=== PATIENT | female | born 1960 | race Caucasian/White ===

== ENCOUNTER 2019-05-01 07:05 | Emergency (ER) | payer MEDICARE, MEDICAID ==
[~2019-05-01] VITALS: Ht 172.7 cm; Wt 74.0 kg
[~2019-05-01 07:05] MED LIST: INSU100I31 SQ; INSU100V11 SQ; LISI-600 PO; METF-438 PO; SIMV20TA5 PO
[2019-05-01] MEDS ORDERED: ondansetron/PF 4mg/2ml inj IV ONE (07:20)
[2019-05-01] MEDS ORDERED: normal saline 1000ML IV soln IVB ONE (07:20)
[2019-05-01 07:40] LABS: BASOPHILS % (AUTO) 0.1 % (0-1); EOSINOPHILS % (AUTO) 0 % (0-6); HEMATOCRIT 44.9 % (35.0-45.0); HEMOGLOBIN 14.7 g/dl (12.0-16.0); LYMPHOCYTES # (AUTO) 2.5 X10'3 (1.1-4.8); LYMPHOCYTES % (AUTO) 16.7 % (21-51); MEAN CORPUSCULAR HEMOGLOBIN 32.5 PG (27.0-31.0); MEAN CORPUSCULAR HGB CONC 32.6 g/dL (33.0-36.5); MEAN CORPUSCULAR VOLUME 99.6 FL (78-98); MEAN PLATELET VOLUME 8.1 FL (7.4-10.4); MONOCYTES # (AUTO) 0.2 X10'3 (0-0.9); MONOCYTES % (AUTO) 1.3 % (2-12); NEUTROPHILS # (AUTO) 12.5 X10'3 (1.8-7.7); NEUTROPHILS % (AUTO) 81.9 % (42-75); PLATELET COUNT 391 X10'3 (140-440); RED BLOOD COUNT 4.51 X10'6 (4.20-5.60); RED CELL DISTRIBUTION WIDTH 13.5 % (11.5-14.5); WHITE BLOOD COUNT 15.3 X10'3 (4.5-11.0)
[2019-05-01 07:51] LABS: ALANINE AMINOTRANSFERASE 26 U/L (12-78); ALBUMIN 3.9 G/DL (3.4-5.0); ALKALINE PHOSPHATASE 180 IU/L (46-116); ANION GAP 20 (8-16); ASPARTATE AMINO TRANSFERASE 16 U/L (10-37); BILIRUBIN,TOTAL 0.4 MG/DL (0.1-1.0); BLOOD UREA NITROGEN 39 MG/DL (7-18); BUN/CREATININE RATIO 27.1 (6.6-38.0); CALCIUM 10.6 MG/DL (8.5-10.1); CHLORIDE 97 MMOL/L (99-107); CREATININE 1.44 MG/DL (0.40-0.90); POTASSIUM 4.7 MMOL/L (3.5-5.1); SODIUM 136 MMOL/L (135-145); TOTAL CARBON DIOXIDE 19.5 MMOL/L (24-32); eGFR 37 ML/MIN
[2019-05-01 07:56] LABS: CLARITY,URINE CLEAR (Clear); COLOR,URINE STRAW (Yellow); GLUCOSE, URINE >=1000 mg/dl (Neg); KETONES,URINE >=80 mg/dl (Neg); LEUKOCYTE ESTERASE ,URINE NEGATIVE (Neg); NITRITES, URINE NEGATIVE (Neg); OCCULT BLOOD,URINE NEGATIVE (Neg); PH,URINE 5.5 (4.8-8.0); PROTEIN,URINE NEGATIVE (Neg); UROBILINOGEN,URINE 0.2 E.U/dL (0.2-1.0)
[2019-05-01 08:05] LABS: UA COLLECTION TYPE CLN CATCH MIDSTREAM
[2019-05-01 08:07] LABS: BACTERIA,URINE 3+ /HPF (Neg); MUCUS STRANDS NONE SEEN /LPF (Neg); RBC,URINE NONE SEEN /HPF (0-2); SQUAMOUS EPITHELIAL CELL,UR FEW /LPF (FEW); WBC CLUMPS,URINE FEW /HPF (NEGATIVE)
[2019-05-01] MEDS ORDERED: CefTRIAXone/D5W-Rocephin 1gm 50 ML IV ONE (08:10)
[2019-05-01 08:12] LABS: GLUCOSE 756 MG/DL (70-104)
[2019-05-01] MEDS ORDERED: potassium Cl 20 mEq SR tablet PO STA ×2 (08:13→10:01)
[2019-05-01] MEDS ORDERED: normal saline 1000ml 1,000 ML IV ONE ×2 (08:15→10:05)
[2019-05-01] MEDS ORDERED: insulin regular, human 10 units/0.1 ml syringe IV ONE ×5 (08:15→11:15)
--- NOTE | 2019-05-01 09:39 | NUR ---
Blood glucose test done using glucometer. MD made aware of results at this time. MD to make orders.
[2019-05-01 11:07] VITALS: BP 147/100
--- NOTE | 2019-05-06 20:09 | NUR ---
ATTEMPTED TO CALL PATIENT WITH RX FOR BACTRIM DS 160 MG TMP PO Q12 HOURS X7 DAYS WRITTEN BY DR OGLESBY FOR POSITIVE URINE CULTURE UNABLE TO LEAVE MESSAGE.
--- NOTE | 2019-05-07 19:56 | NUR ---
ATTEMPTED TO CALL PATIENT WITH RX UNABLE TO LEAVE MESSAGE. LETTER SENT
== END 2019-05-01 12:47 | disposition home or self-care (01) ==
LOC: ER 07:06
DX: E11.65 Type 2 diabetes mellitus with hyperglycemia (principal); N39.0 Urinary tract infection, site not specified; E78.00 Pure hypercholesterolemia, unspecified; I10 Essential (primary) hypertension; F12.90 Cannabis use, unspecified, uncomplicated; Z98.890 Other specified postprocedural states; Z90.49 Acquired absence of other specified parts of digestive tract; Z79.4 Long term (current) use of insulin
CPT/HCPCS: 36415; 80053; 81001; 82948; 85025; 87077; 87088; 87186; 96374; 96375; 96376; 99284; J0696; J1815; J2405; J7030

== ENCOUNTER 2019-05-01 17:36 | Inpatient (IN) | payer MEDICARE, MEDICAID ==
[~2019-05-01] VITALS: Ht 172.7 cm; Wt 76.8 kg
--- NOTE | 2019-05-01 18:23 | NUR ---
PT STARTED VOMITING. ACCU CHECK 443. KIMBERLEY AND OLAF DACOSTA NOTIFIED WILL ATTEMPT TO MOVE PT TO MAIN ER.
--- NOTE | 2019-05-01 18:30 | NUR ---
SPOKE TO CAMRYN GIORDANO REGARDING PATIENT: PT VOMITED 300 ML OF CLEARISH BROWN EMESIS PATIENT RECEIVED 40 UNITS OF INSULIN TODAY AND 4 LITERES OF NS EARLIER TODAY IN THE ER
--- NOTE | 2019-05-01 18:50 | NUR ---
KENNETH VOMITED AGAIN 200 ML BROWN CLEARISH VOMIT: CAMRYN GIORDANO INFORMED ORDERS RECIEVED
[2019-05-01] MEDS ORDERED: metoclopramide 5 mg/ml inj IV ONE (18:55)
[2019-05-01] MEDS ORDERED: normal saline 1000ML IV soln IVB ONE ×2 (18:55→20:10)
--- NOTE | 2019-05-01 19:00 | NUR ---
PATIENT MOVED TO MAIN ER TO ROOM ONE FOR FURTHER TREATMENT: MEDICATIONS AND IV SUPPLIES GIVEN TO JANICE MARTINEZ
[2019-05-01 19:22] LABS: BASOPHILS % (AUTO) 0.2 % (0-1); EOSINOPHILS % (AUTO) 0 % (0-6); HEMATOCRIT 41.6 % (35.0-45.0); HEMOGLOBIN 13.6 g/dl (12.0-16.0); LYMPHOCYTES # (AUTO) 1.4 X10'3 (1.1-4.8); MEAN CORPUSCULAR HGB CONC 32.8 g/dL (33.0-36.5); MEAN CORPUSCULAR VOLUME 97.8 FL (78-98); MONOCYTES # (AUTO) 0.3 X10'3 (0-0.9); MONOCYTES % (AUTO) 2.5 % (2-12); NEUTROPHILS # (AUTO) 11.9 X10'3 (1.8-7.7); NEUTROPHILS % (AUTO) 87.3 % (42-75); PLATELET COUNT 360 X10'3 (140-440); RED BLOOD COUNT 4.25 X10'6 (4.20-5.60); RED CELL DISTRIBUTION WIDTH 13.5 % (11.5-14.5); WHITE BLOOD COUNT 13.6 X10'3 (4.5-11.0)
[2019-05-01 19:47] LABS: ALANINE AMINOTRANSFERASE 28 U/L (12-78); ALKALINE PHOSPHATASE 130 IU/L (46-116); ANION GAP 24 (8-16); ASPARTATE AMINO TRANSFERASE 18 U/L (10-37); BILIRUBIN,TOTAL 0.4 MG/DL (0.1-1.0); BLOOD UREA NITROGEN 31 MG/DL (7-18); BUN/CREATININE RATIO 22.8 (6.6-38.0); CALCIUM 10.1 MG/DL (8.5-10.1); CHLORIDE 100 MMOL/L (99-107); CREATININE 1.36 MG/DL (0.40-0.90); LIPASE 108 U/L (73-393); POTASSIUM 4.9 MMOL/L (3.5-5.1); SODIUM 139 MMOL/L (135-145); TOTAL CARBON DIOXIDE 15.2 MMOL/L (24-32); TOTAL PROTEIN 7.9 G/DL (6.4-8.2); eGFR 40 ML/MIN
--- NOTE | 2019-05-01 19:51 | NUR ---
ESCORTED PT TO BATHROOM. MILDLY UNSTEADY GAIT NOTED. PRIMARY RN NOTIFIED. BLANKET PROVIDED WHEN RETURNED TO [facility].
[2019-05-01 20:07] LABS: GLUCOSE 504 MG/DL (70-104)
[2019-05-01] MEDS ORDERED: insulin regular, human 10 units/0.1 ml syringe SQ ONE (20:10)
[2019-05-01] MEDS ORDERED: haloperidol lactate 5mg/ml inj IM ONE (21:15)
[2019-05-01] MEDS ORDERED: insulin regular, human 100 UNIT in normal saline 100ml IV soln 100 ML IV PRN ×2 (23:00)
[2019-05-01] MEDS ORDERED: insulin regular, human vial - multi-dose IV PRN (23:50)
[2019-05-01] MEDS ORDERED: insulin regular, DKA only 100 UNIT in normal saline 100ml IV soln 99 ML IV SCH ×2 (23:50)
[2019-05-01] MEDS ORDERED: HYDROcodone/acetaminophen 5mg/325mg tablet PO PRN (23:50)
[2019-05-01] MEDS ORDERED: magnesium hydroxide 30ml (MOM) UD suspension PO PRN (23:50)
[2019-05-01] MEDS ORDERED: acetaminophen 325mg tablet PO PRN (23:50)
[2019-05-02] VITALS (12 sets, daily range): BP systolic 95–210; BP diastolic 48–108
[2019-05-02] MEDS: normal saline 1000ml 1,000 ML IV SCH ×11 (00:12→22:27)
[2019-05-02] MEDS: potassium CL 20mEq in D5-1/2NS 1,000 ML IV PRN ×2 (02:24→09:08)
[2019-05-02 02:36] LABS: ALANINE AMINOTRANSFERASE 28 U/L (12-78); ALBUMIN 3.2 G/DL (3.4-5.0); ALBUMIN/GLOBULIN RATIO 0.9 (1.1-1.5); ALKALINE PHOSPHATASE 102 IU/L (46-116); ANION GAP 17 (8-16); ASPARTATE AMINO TRANSFERASE 17 U/L (10-37); BILIRUBIN,TOTAL 0.3 MG/DL (0.1-1.0); BLOOD UREA NITROGEN 26 MG/DL (7-18); BUN/CREATININE RATIO 20.8 (6.6-38.0); CALCIUM 9.1 MG/DL (8.5-10.1); CHLORIDE 110 MMOL/L (99-107); CREATININE 1.25 MG/DL (0.40-0.90); GLUCOSE 249 MG/DL (70-104); POTASSIUM 4.2 MMOL/L (3.5-5.1); SODIUM 145 MMOL/L (135-145); TOTAL CARBON DIOXIDE 17.8 MMOL/L (24-32); TOTAL PROTEIN 6.7 G/DL (6.4-8.2); eGFR 44 ML/MIN
[2019-05-02 02:46] LABS: URINE AMPHETAMINE SCREEN NEGATIVE (Neg); URINE BARBITUATE SCREEN NEGATIVE (Neg); URINE BENZODIAZEPINES SCREEN NEGATIVE (Neg); URINE CANNABINOID SCREEN POSITIVE (Neg); URINE COCAINE SCREEN NEGATIVE (Neg); URINE METHADONE SCREEN NEGATIVE (Neg); URINE OPIATE SCREEN NEGATIVE (Neg); URINE PHENCYCLIDINE SCREEN NEGATIVE (Neg)
--- NOTE | 2019-05-02 08:00 | NUR ---
received report from ED nurse, patient arrived on unit, telemetry applied, insulin running at 5ml/hr, D5/1/2NS+20K @150ml/hr in RAC, Blood glucose assessed, VSS, patient able to transfer self to bed, no acute distress, will continue to monitor.
[2019-05-02] MEDS: heparin, porcine 5000 units/ml vial SQ SCH ×3 (08:52→20:00)
[2019-05-02] MEDS: lisinopril 20mg tablet PO SCH ×2 (08:58→19:22)
[2019-05-02] MEDS ORDERED: glucagon, human recombinant 1mg kit SUBCUT PRN (09:40)
[2019-05-02] MEDS ORDERED: dextrose 50%-water 50ml dispensing syringe IV PRN ×2 (09:40)
[2019-05-02] MEDS ORDERED: dextrose ORAL solution 15 GM/59 ML bottle PO PRN ×2 (09:40)
[2019-05-02] MEDS ORDERED: MESSAGE TO PHARMACY PO ONE (09:40)
--- NOTE | 2019-05-02 10:46 | NUR ---
DM consult: Pt admit with hyperglycemia with BG 504, N/V, dehydration, and metabolic acidosis. Patient's last A1c was >14.0 01/30/18, pending new A1c this visit. Both T1DM and T2DM listed in PMH, pt reports T1DM per H&P. BG levels now down to 249. Pending physical assessment. Per RN notes pt with N/V. Pt will need DM education prior to discharge once stable pending new A1c. Pt currently with active CHO controlled diet order however being documented as NPO in care trends. No documented LBM. Will continue to follow. Recommendations: 1) Continue CHO controlled diet 2) DM education prior to discharge once stable pending A1c 3) Routine bowel care 4) Wt per rx Addendum: 05/02/19 at [address] Amended: Links added.
[2019-05-02 11:17] LABS: ALBUMIN 3.1 G/DL (3.4-5.0); ANION GAP 8 (8-16); BLOOD UREA NITROGEN 21 MG/DL (7-18); BUN/CREATININE RATIO 18.4 (6.6-38.0); CALCIUM 8.5 MG/DL (8.5-10.1); CHLORIDE 110 MMOL/L (99-107); CREATININE 1.14 MG/DL (0.40-0.90); GLUCOSE 160 MG/DL (70-104); POTASSIUM 4.3 MMOL/L (3.5-5.1); SODIUM 144 MMOL/L (135-145); TOTAL CARBON DIOXIDE 26.4 MMOL/L (24-32); eGFR 49 ML/MIN
--- NOTE | 2019-05-02 11:46 | NUR ---
promotional table spacer PAGER ID: [phone] MESSAGE: MICHELLE Richard, ext [phone], [id number], Ema, nelsy Gap is closed and CO2 is normal, will give lunch and treat with subq insulin per protocol and DC insulin drip in a few hours per protocol.
[2019-05-02] MEDS: insulin Lispro (HumaLOG) vial - multi-dose SQ SCH ×2 (12:54→19:35)
--- NOTE | 2019-05-02 18:17 | NUR ---
Problems reprioritized. Patient report given, questions answered & plan of care reviewed with Whit. Patient currently resting in bed, bed locked and low, call light in reach, stable at shift change
--- NOTE | 2019-05-02 18:20 | NUR ---
Patient in room PCU 3009. I have received report from AM RN and had the opportunity to ask questions and assume patient care. assumed care. pt BP elevated. will continue to monitor/ units protocol.
--- NOTE | 2019-05-02 18:36 | NUR ---
notified, pt complaints of dizziness. 05/07 epigastric pain, BP 210-195/96. EKG completed, new lab and medication orders.2L/nc patient laying bed, will continue to monitor
[2019-05-02] MEDS ORDERED: nitroGLYCERIN 0.4mg SUBLingual tab SL ONE (18:50)
[2019-05-02] MEDS: nitroGLYCERIN 0.4mg SUBLingual tab SL PRN ×2 (18:53→19:04)
[2019-05-02] MEDS ORDERED: aspirin 81mg tab.chew PO ONE (19:00)
[2019-05-02] MEDS: labetalol 20mg/4ml (5mg/ml) syringe IV PRN ×2 (19:23→19:42)
[2019-05-02] MEDS: metoprolol tartrate 25mg tablet PO SCH (19:23)
[2019-05-02] MEDS: ondansetron/PF 4mg/2ml inj IV PRN (19:23)
[2019-05-02 19:33] LABS: TROPONIN I 0.42 NG/ML (0.0-0.05)
[2019-05-02] MEDS ORDERED: morphine 4 MG/ML inj SYRINge ONE (19:46)
[2019-05-02] MEDS ORDERED: morphine 4 MG/ML inj SYRINge IV PRN (19:50)
[2019-05-02] MEDS ORDERED: morphine 2 MG/ML inj. syringe IV PRN (19:50)
[2019-05-02] MEDS ORDERED: nitroGLYCERIN 0.4mg/hour patch TD PRN (19:55)
[2019-05-02] MEDS ORDERED: pantoprazole 40 MG vial IV ONE (19:55)
[2019-05-02] MEDS: atorvastatin 10mg tablet PO SCH (20:04)
[2019-05-02] MEDS: mag hydrox/Alum hydrox/simeth 30ml oral suspension PO PRN (20:04)
[2019-05-02] MEDS: enoxaparin 80mg/0.8ml syringe SUBCUT SCH (20:11)
[2019-05-02 20:34] LABS: D-DIMER 1.95 MG/L FEU (0-0.50)
[2019-05-02 20:41] LABS: ALBUMIN 3.4 G/DL (3.4-5.0); ANION GAP 22 (8-16); BLOOD UREA NITROGEN 21 MG/DL (7-18); BUN/CREATININE RATIO 17.4 (6.6-38.0); CALCIUM 8.9 MG/DL (8.5-10.1); CHLORIDE 99 MMOL/L (99-107); CREATININE 1.21 MG/DL (0.40-0.90); SODIUM 137 MMOL/L (135-145); TROPONIN I 0.36 NG/ML (0.0-0.05); eGFR 46 ML/MIN
[2019-05-02 20:43] LABS: GLUCOSE 482 MG/DL (70-104)
[2019-05-02] MEDS: insulin glargine (Lantus) pen - multi-dose SQ SCH (21:00)
--- NOTE | 2019-05-02 21:30 | NUR ---
Dr. Cruz notified. critical glucose from lab at 1999 was 482. current finger stick 384, co2 16, anio gap 22 trops 0.32 pt SBP continue to trend 180-190. denies chest pain, resting quietly new orders pt placed on DKA protocol. record press tender aware. patient assignment changed from 4 to 3 patients.
[2019-05-02] MEDS ORDERED: normal saline 1000ml 1,000 ML IV SCH (21:43)
[2019-05-02] MEDS ORDERED: insulin regular, DKA only 100 UNIT in normal saline 100ml IV soln 99 ML IV SCH ×2 (21:43)
[2019-05-02] MEDS ORDERED: potassium CL 20mEq in D5-1/2NS 1,000 ML IV PRN (21:43)
[2019-05-03] VITALS (8 sets, daily range): BP systolic 133–189; BP diastolic 65–94
[2019-05-03 01:58] LABS: ALBUMIN 2.7 G/DL (3.4-5.0); ANION GAP 14 (8-16); BLOOD UREA NITROGEN 20 MG/DL (7-18); BUN/CREATININE RATIO 19.6 (6.6-38.0); CHLORIDE 109 MMOL/L (99-107); CREATININE 1.02 MG/DL (0.40-0.90); GLUCOSE 214 MG/DL (70-104); POTASSIUM 3.9 MMOL/L (3.5-5.1); SODIUM 142 MMOL/L (135-145); TOTAL CARBON DIOXIDE 18.9 MMOL/L (24-32); eGFR 56 ML/MIN
[2019-05-03] MEDS ORDERED: Potassium Cl inj 20 MEQ in normal saline 1000ml 990 ML IV SCH (02:45)
[2019-05-03] MEDS: potassium Cl 20mEq in NS 1,000 ML IV SCH ×2 (03:00→13:25)
--- NOTE | 2019-05-03 06:30 | NUR ---
Patient in room PCU 3009. I have received report from pge vidal and had the opportunity to ask questions and assume patient care.
--- NOTE | 2019-05-03 06:35 | NUR ---
Problems reprioritized. Patient report given Andreas RN and endoresed care to Andreas RN, questions answered & plan of care reviewed with .
[2019-05-03] MEDS: insulin Lispro (HumaLOG) vial - multi-dose SQ SCH ×3 (07:55→21:35)
[2019-05-03] MEDS: ondansetron/PF 4mg/2ml inj IV PRN (07:58)
[2019-05-03] MEDS: enoxaparin 80mg/0.8ml syringe SUBCUT SCH ×2 (08:07→20:30)
[2019-05-03] MEDS: lisinopril 20mg tablet PO SCH ×2 (08:12→20:28)
[2019-05-03] MEDS: mag hydrox/Alum hydrox/simeth 30ml oral suspension PO PRN ×3 (08:13→19:48)
[2019-05-03] MEDS: metoprolol tartrate 25mg tablet PO SCH ×2 (08:13→20:29)
[2019-05-03 08:17] LABS: BASOPHILS # (AUTO) 0.1 X10'3 (0-0.2); BASOPHILS % (AUTO) 0.4 % (0-1); EOSINOPHILS % (AUTO) 0 % (0-6); HEMATOCRIT 36.8 % (35.0-45.0); HEMOGLOBIN 12.3 g/dl (12.0-16.0); LYMPHOCYTES # (AUTO) 2.7 X10'3 (1.1-4.8); LYMPHOCYTES % (AUTO) 18.7 % (21-51); MEAN CORPUSCULAR HEMOGLOBIN 32.3 PG (27.0-31.0); MEAN CORPUSCULAR HGB CONC 33.3 g/dL (33.0-36.5); MEAN PLATELET VOLUME 8.1 FL (7.4-10.4); MONOCYTES # (AUTO) 0.9 X10'3 (0-0.9); MONOCYTES % (AUTO) 6.3 % (2-12); NEUTROPHILS % (AUTO) 74.6 % (42-75); PLATELET COUNT 279 X10'3 (140-440); RED CELL DISTRIBUTION WIDTH 13.5 % (11.5-14.5); WHITE BLOOD COUNT 14.7 X10'3 (4.5-11.0)
[2019-05-03 08:31] LABS: ALKALINE PHOSPHATASE 96 IU/L (46-116); BILIRUBIN,TOTAL 0.6 MG/DL (0.1-1.0); TOTAL PROTEIN 6.6 G/DL (6.4-8.2)
[2019-05-03 08:45] LABS: ALANINE AMINOTRANSFERASE 47 U/L (12-78); ALBUMIN/GLOBULIN RATIO 0.8 (1.1-1.5); ANION GAP 16 (8-16); ASPARTATE AMINO TRANSFERASE 57 U/L (10-37); BLOOD UREA NITROGEN 17 MG/DL (7-18); BUN/CREATININE RATIO 13.9 (6.6-38.0); CALCIUM 8.4 MG/DL (8.5-10.1); CHLORIDE 102 MMOL/L (99-107); CREATININE 1.22 MG/DL (0.40-0.90); GLUCOSE 434 MG/DL (70-104); POTASSIUM 4.7 MMOL/L (3.5-5.1); SODIUM 136 MMOL/L (135-145); TOTAL CARBON DIOXIDE 18.1 MMOL/L (24-32); eGFR 45 ML/MIN
[2019-05-03] MEDS ORDERED: iohexol 350MG/ML 100ml bottle IV ONE (11:46)
[2019-05-03] MEDS: MESSAGE TO NURSING PO NR (13:25)
[2019-05-03] MEDS ORDERED: normal saline 1000ml 1,000 ML IV ONE (14:55)
[2019-05-03] MEDS ORDERED: regadenoson 0.4mg/5ml syringe IV ONE (14:55)
[2019-05-03] MEDS ORDERED: nitroGLYCERIN 0.4mg SUBLingual tab SL PRN (14:55)
[2019-05-03] MEDS ORDERED: metoprolol tartrate 1mg/ml inj IV PRN (14:55)
[2019-05-03] MEDS ORDERED: aminophylline 250mg/10ml inj. IV PRN (14:55)
--- NOTE | 2019-05-03 15:07 | NUR ---
PAGER ID: [phone] MESSAGE: DR. PINZON, 3009/RAUL, CURRENT ORDER NS 20 MEQ KCL AT 100CC/HR. NEW ORDER FOR 1LITER NS AT 100CC/HOUR X1. PLEASE CLARIFY IV ORDERS. HU [id number], TY
[2019-05-03] MEDS: labetalol 20mg/4ml (5mg/ml) syringe IV PRN (15:26)
--- NOTE | 2019-05-03 17:06 | NUR ---
PAGER ID: [phone] MESSAGE: DR. PINZON, 3009A/RAUL, JUST HAD 7 BEAT RUN VT/OR A BBB/ OR BURST SVT? WIDE COMPLEX. ASX. HU [id number]/[id number]. TY
--- NOTE | 2019-05-03 18:45 | NUR ---
Problems reprioritized. Patient report given, questions answered & plan of care reviewed with MICHELLE NAVARRO.
--- NOTE | 2019-05-03 18:58 | NUR ---
Patient in room PCU 3009. I have received report from MICHELLE Morejon and had the opportunity to ask questions and assume patient care.
[2019-05-03] MEDS: atorvastatin 10mg tablet PO SCH (20:29)
[2019-05-03] MEDS: insulin glargine (Lantus) pen - multi-dose SQ SCH (21:36)
[2019-05-03] MEDS ORDERED: potassium Cl 20mEq in NS 1,000 ML IV SCH (21:43)
[2019-05-04] VITALS (17 sets, daily range): BP systolic 111–199; BP diastolic 68–100
[2019-05-04] MEDS: mag hydrox/Alum hydrox/simeth 30ml oral suspension PO PRN ×2 (00:46→18:36)
[2019-05-04 05:41] LABS: ABG BASE EXCESS -12.8 mmol/L (-2.0-3.0); ABG HCO3 12.1 mmol/L (22.0-26.0); ABG OXYGEN SATURATION 94.4 % (95-98); ABG PH (T) 7.286 (7.350-7.450); ABG PO2 (T) 76.6 mmHg (83-108); ALLEN'S TEST Positive; FMetHb 0.2 % (0.3-1.12); FO2Hb 94.2 % (94-100); PATIENT TEMPERATURE 36.8; RESPIRATORY RATE (OBSERVED) 16 b/min; TOTAL HEMOGLOBIN 14.1 G/dl (12.0-16.0)
[2019-05-04 06:28] LABS: BASOPHILS % (AUTO) 0.3 % (0-1); EOSINOPHILS % (AUTO) 0 % (0-6); HEMATOCRIT 36.7 % (35.0-45.0); HEMOGLOBIN 12.5 g/dl (12.0-16.0); LYMPHOCYTES # (AUTO) 2.9 X10'3 (1.1-4.8); LYMPHOCYTES % (AUTO) 35.3 % (21-51); MEAN CORPUSCULAR HEMOGLOBIN 32.3 PG (27.0-31.0); MEAN CORPUSCULAR VOLUME 95.2 FL (78-98); MEAN PLATELET VOLUME 8.2 FL (7.4-10.4); MONOCYTES # (AUTO) 0.7 X10'3 (0-0.9); MONOCYTES % (AUTO) 8.6 % (2-12); NEUTROPHILS # (AUTO) 4.6 X10'3 (1.8-7.7); NEUTROPHILS % (AUTO) 55.8 % (42-75); PLATELET COUNT 274 X10'3 (140-440); RED BLOOD COUNT 3.86 X10'6 (4.20-5.60); RED CELL DISTRIBUTION WIDTH 13.3 % (11.5-14.5); WHITE BLOOD COUNT 8.3 X10'3 (4.5-11.0)
--- NOTE | 2019-05-04 06:35 | NUR ---
Problems reprioritized. Patient report given, questions answered & plan of care reviewed with MICHELLE Morejon.
--- NOTE | 2019-05-04 06:40 | NUR ---
Patient in room PCU 3009. I have received report from MICHELLE Hernandez and had the opportunity to ask questions and assume patient care.
[2019-05-04 06:54] LABS: ALANINE AMINOTRANSFERASE 53 U/L (12-78); ALBUMIN 3.1 G/DL (3.4-5.0); ALBUMIN/GLOBULIN RATIO 0.9 (1.1-1.5); ALKALINE PHOSPHATASE 98 IU/L (46-116); ANION GAP 11 (8-16); ASPARTATE AMINO TRANSFERASE 37 U/L (10-37); BILIRUBIN,TOTAL 0.7 MG/DL (0.1-1.0); BLOOD UREA NITROGEN 9 MG/DL (7-18); BUN/CREATININE RATIO 10.6 (6.6-38.0); CALCIUM 8.4 MG/DL (8.5-10.1); CHLORIDE 104 MMOL/L (99-107); CHOL/HDL RATIO 2.6 (0.00-4.99); CHOLESTEROL 143 MG/DL (0-200); CREATININE 0.85 MG/DL (0.40-0.90); GLUCOSE 160 MG/DL (70-104); HDL CHOLESTEROL 56 MG/DL (35-60); LDL CHOLESTEROL 70 MG/DL (50-100); POTASSIUM 3.5 MMOL/L (3.5-5.1); SODIUM 142 MMOL/L (135-145); TOTAL CARBON DIOXIDE 26.6 MMOL/L (24-32); TOTAL PROTEIN 6.7 G/DL (6.4-8.2); TRIGLYCERIDES 140 MG/DL (20-135); eGFR 69 ML/MIN
[2019-05-04] MEDS: metoprolol tartrate 25mg tablet PO SCH ×2 (08:03→20:58)
[2019-05-04] MEDS: lisinopril 20mg tablet PO SCH ×2 (08:03→20:58)
[2019-05-04] MEDS: enoxaparin 80mg/0.8ml syringe SUBCUT SCH ×2 (08:04→20:59)
[2019-05-04] MEDS: insulin Lispro (HumaLOG) vial - multi-dose SQ SCH ×2 (08:13→18:45)
[2019-05-04] MEDS: MESSAGE TO NURSING PO NR (10:00)
--- NOTE | 2019-05-04 11:33 | NUR ---
PAGER ID: [phone] MESSAGE: DR. JONES, 0972S/RAUL, STATES EVERY TIME SHE EATS IT HURTS. SWALLOWING FOOD CAUSES PAIN. MAALOX HAS RELEIVED THE PAIN. CLAIMS TO TAKE MANY ANTACIDS AT HOME. CANNOT EAT MUCH NOW R/T PAIN OF EATING. HU [id number].
[2019-05-04] MEDS: labetalol 20mg/4ml (5mg/ml) syringe IV PRN (11:36)
--- NOTE | 2019-05-04 13:37 | NUR ---
PAGER ID: [phone] MESSAGE: DR. 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 CAN SHE TRY TO EAT NOW? ALSO, PT IS VERY FORGETFUL, CAN'T REMEMBER WHAT YOU TOLD HER. HER MOTHER IS ASKING IF YOU COULD REPEAT WHAT YOU TOLD HER DAUGHTER. HU [id number]. TY
[2019-05-04] MEDS ORDERED: AMLO5TAB4 PO (15:30)
[2019-05-04] MEDS ORDERED: PANT40TA4 PO (15:31)
--- NOTE | 2019-05-04 15:34 | NUR ---
F/u: Pt/family seen by WHITNEY for written/verbal DM ed w/ RD contact information provided. Pt A1C down from >14 last year; pt reports would like to go to CDE Course which WHITNEY encouraged. Addendum: 05/04/19 at [address] Amended: Links added.
--- NOTE | 2019-05-04 15:35 | NUR ---
Paged Dr. Quintero regarding pts elevated SBP PAGER ID: [phone] MESSAGE: [phone] - Ema - SBP has remained over 150 throughout day. Do we want to give another dose of labetalol before discharge? Kindly advise, thank you! - MICHELLE Hill [phone]
[2019-05-04] MEDS ORDERED: cloNIDine 0.1 mg tablet PO ONE (15:40)
--- NOTE | 2019-05-04 15:49 | NUR ---
ORDER FROM DR. JONES FOR CLONIDINE 0.2 MG PO X1. STATES"DON'T GIVE TO IV TRANDATE".
--- NOTE | 2019-05-04 18:30 | NUR ---
Patient in room PCU 3009. I have received report from Jalil MARTINEZ and had the opportunity to ask questions and assume patient care.
--- NOTE | 2019-05-04 18:30 | NUR ---
Problems reprioritized. Patient report given, questions answered & plan of care reviewed with MICHELLE CHAUDHARY.
--- NOTE | 2019-05-04 18:44 | NUR ---
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
--- NOTE | 2019-05-04 19:54 | NUR ---
rec'd a call from Dr. Galeana who stated to cancel discharge and ordered kiesha scan and other tests for tomorrow.
[2019-05-04] MEDS ORDERED: metoprolol tartrate 1mg/ml inj IV PRN (19:55)
[2019-05-04] MEDS ORDERED: nitroGLYCERIN 0.4mg SUBLingual tab SL PRN (19:55)
[2019-05-04] MEDS ORDERED: aminophylline 250mg/10ml inj. IV PRN (19:55)
[2019-05-04] MEDS ORDERED: regadenoson 0.4mg/5ml syringe IV ONE (19:55)
[2019-05-04] MEDS ORDERED: regadenoson 0.4mg/5ml syringe IV PRN (20:05)
[2019-05-04] MEDS: atorvastatin 10mg tablet PO SCH (20:58)
[2019-05-04] MEDS: insulin glargine (Lantus) pen - multi-dose SQ SCH (22:27)
[2019-05-04] MEDS ORDERED: amLODIPine 5mg tablet PO ONE (22:55)
[2019-05-04] MEDS ORDERED: pantoprazole 40 MG vial IV ONE (22:55)
--- NOTE | 2019-05-04 23:02 | NUR ---
called Dr. Galeana to let him know that lexiscan was done already today. he would still like abdominal ultrasound done, but he stated that he has now signed off on this patient and that he was unable to see lexiscan report earlier tonight. read him the results and he said ok to dc from cardiology and turn over fully to hospitalist. Dr. Galeana stated he does not want to be notified about this patient any more.
[2019-05-05 02:00] VITALS: BP 154/92
[2019-05-05 05:47] LABS: BASOPHILS % (AUTO) 0.4 % (0-1); EOSINOPHILS % (AUTO) 0 % (0-6); HEMATOCRIT 42.9 % (35.0-45.0); HEMOGLOBIN 14.4 g/dl (12.0-16.0); LYMPHOCYTES # (AUTO) 2.2 X10'3 (1.1-4.8); LYMPHOCYTES % (AUTO) 42.4 % (21-51); MEAN CORPUSCULAR HEMOGLOBIN 32.1 PG (27.0-31.0); MEAN CORPUSCULAR HGB CONC 33.6 g/dL (33.0-36.5); MEAN CORPUSCULAR VOLUME 95.5 FL (78-98); MEAN PLATELET VOLUME 7.9 FL (7.4-10.4); MONOCYTES # (AUTO) 0.7 X10'3 (0-0.9); MONOCYTES % (AUTO) 13.3 % (2-12); NEUTROPHILS # (AUTO) 2.3 X10'3 (1.8-7.7); NEUTROPHILS % (AUTO) 43.9 % (42-75); PLATELET COUNT 287 X10'3 (140-440); RED BLOOD COUNT 4.49 X10'6 (4.20-5.60); RED CELL DISTRIBUTION WIDTH 13.1 % (11.5-14.5); WHITE BLOOD COUNT 5.1 X10'3 (4.5-11.0)
--- NOTE | 2019-05-05 05:52 | NUR ---
Orientee documentation: I have reviewed and agree with all interventions, meds given, assessments performed and documented by Karen MARTINEZ.
[2019-05-05 06:00] VITALS: BP 119/83
--- NOTE | 2019-05-05 06:23 | NUR ---
Patient in room PCU 3009. I have received report from MICHELLE Martinez and had the opportunity to ask questions and assume patient care.
--- NOTE | 2019-05-05 06:25 | NUR ---
Patient in room PCU 3009. I have received report from MICHELLE CHAUDHARY and had the opportunity to ask questions and assume patient care.
--- NOTE | 2019-05-05 06:28 | NUR ---
Problems reprioritized. Patient report given, questions answered & plan of care reviewed with Jean-Pierre and Claudia RNs.
--- NOTE | 2019-05-05 06:28 | NUR ---
Problems reprioritized. Patient report given, questions answered & plan of care reviewed with Jean-Pierre Rn and Liz RN.
[2019-05-05 06:35] LABS: ALANINE AMINOTRANSFERASE 48 U/L (12-78); ALBUMIN 3.2 G/DL (3.4-5.0); ALBUMIN/GLOBULIN RATIO 0.8 (1.1-1.5); ALKALINE PHOSPHATASE 99 IU/L (46-116); AMYLASE 46 U/L (25-115); ANION GAP 10 (8-16); ASPARTATE AMINO TRANSFERASE 25 U/L (10-37); BILIRUBIN,TOTAL 0.6 MG/DL (0.1-1.0); BLOOD UREA NITROGEN 12 MG/DL (7-18); BUN/CREATININE RATIO 12.8 (6.6-38.0); CALCIUM 9.3 MG/DL (8.5-10.1); CHLORIDE 107 MMOL/L (99-107); CREATININE 0.94 MG/DL (0.40-0.90); POTASSIUM 3.5 MMOL/L (3.5-5.1); SODIUM 149 MMOL/L (135-145); TOTAL CARBON DIOXIDE 32.2 MMOL/L (24-32); TOTAL PROTEIN 7.3 G/DL (6.4-8.2); eGFR 61 ML/MIN
[2019-05-05 06:58] LABS: GLUCOSE 37 MG/DL (70-104)
--- NOTE | 2019-05-05 07:04 | NUR ---
Paged Dr. Quintero about pts BS of 37 at [phone]. Reassessed BS read 153. PAGER ID: [phone] MESSAGE: [id number] - Lefort: FYI pt BS was 37 at 0449. Reassessed at 0700 BS was 153. MICHELLE Hill x [phone]
[2019-05-05] MEDS ORDERED: amLODIPine 5mg tablet PO SCH (08:00)
[2019-05-05] MEDS: metoprolol tartrate 25mg tablet PO SCH (08:00)
[2019-05-05] MEDS ORDERED: pantoprazole 40 MG vial IV SCH (08:00)
[2019-05-05 08:01] VITALS: BP_SYST 147
[2019-05-05] MEDS: lisinopril 20mg tablet PO SCH (08:01)
[2019-05-05] MEDS: insulin Lispro (HumaLOG) vial - multi-dose SQ SCH (08:20)
--- NOTE | 2019-05-05 09:40 | NUR ---
CALLED UNABLE TO LEAVE A MESSAGE.
[2019-05-05] MEDS: MESSAGE TO NURSING PO NR (10:29)
--- NOTE | 2019-05-05 10:46 | NUR ---
Pt discharged [id number]
--- NOTE | 2019-05-05 11:11 | NUR ---
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
== END 2019-05-05 10:47 | disposition home or self-care (01) | DRG 637 ==
LOC: ER 17:37 → ED HOLD 23:48 → PCU 3S 05-02 07:55
PROVIDERS: ADMIT Internal Medicine; ATTEND Family Medicine
PROC: B32T1ZZ Computerized Tomography (CT Scan) of Left Pulmonary Artery using Low Osmolar Contrast (ICD-10-PCS; principal; 2019-05-03)
PROC: B3201ZZ Computerized Tomography (CT Scan) of Thoracic Aorta using Low Osmolar Contrast (ICD-10-PCS; 2019-05-03)
PROC: B32S1ZZ Computerized Tomography (CT Scan) of Right Pulmonary Artery using Low Osmolar Contrast (ICD-10-PCS; 2019-05-03)
PROC: 4A02XM4 Measurement of Cardiac Total Activity, External Approach (ICD-10-PCS; 2019-05-04)
PROC: 3E033HZ Introduction of Radioactive Substance into Peripheral Vein, Percutaneous Approach (ICD-10-PCS; 2019-05-04)
DX: E11.10 Type 2 diabetes mellitus with ketoacidosis without coma (principal); I21.A1 Myocardial infarction type 2; I16.1 Hypertensive emergency; T40.7X1A Poisoning by cannabis (derivatives), accidental (unintentional), initial encounter; E78.00 Pure hypercholesterolemia, unspecified; E86.0 Dehydration; F12.10 Cannabis abuse, uncomplicated; I10 Essential (primary) hypertension; I25.10 Atherosclerotic heart disease of native coronary artery without angina pectoris; K21.9 Gastro-esophageal reflux disease without esophagitis; K29.70 Gastritis, unspecified, without bleeding; Z87.891 Personal history of nicotine dependence; Z91.19 Patient's noncompliance with other medical treatment and regimen; Z90.49 Acquired absence of other specified parts of digestive tract; Z71.51 Drug abuse counseling and surveillance of drug abuser; Y92.89 Other specified places as the place of occurrence of the external cause
CPT/HCPCS: 36415; 36600; 71275; 76700; 78452; 80048; 80053; 80061; 80305; 82009; 82150; 82803; 82948; 83036; 83605; 83690; 84484; 85018; 85025; 85379; 87081; 93005; 93017; 93306; 96361; 96372; 96374; 99285; A9500; C9113; G0378; J0280; J1630; J1644; J1650; J1815; J2270; J2405; J2765; J2785; J3480; J3490; J7030; Q9967

== ENCOUNTER 2021-10-22 09:20 | Emergency (ER) | payer MEDICARE, MEDICAID ==
[~2021-10-22] VITALS: Ht 172.7 cm; Wt 72.7 kg
[~2021-10-22 09:20] MED LIST changes: +AMLO5TAB4 PO; -LISI-600 PO; +LISI20TA28 PO; +PANT40TA54 PO; +SIMV-42 PO; -SIMV20TA5 PO
[2021-10-22 09:33] VITALS: BP 147/90
[2021-10-22] MEDS ORDERED: acetaminophen 325mg tablet PO ONE (09:55)
[2021-10-22 10:41] LABS: BASOPHILS % (AUTO) 0.4 % (0-1); EOSINOPHILS % (AUTO) 0 % (0-6); HEMATOCRIT 37.5 % (35.0-45.0); HEMOGLOBIN 12.8 g/dl (12.0-16.0); LYMPHOCYTES # (AUTO) 2.7 X10'3 (1.1-4.8); LYMPHOCYTES % (AUTO) 30.4 % (21-51); MEAN CORPUSCULAR HEMOGLOBIN 32.6 PG (27.0-31.0); MEAN CORPUSCULAR HGB CONC 34.2 g/dL (33.0-36.5); MEAN CORPUSCULAR VOLUME 95.5 FL (78-98); MEAN PLATELET VOLUME 7.6 FL (7.4-10.4); MONOCYTES # (AUTO) 0.7 X10'3 (0-0.9); MONOCYTES % (AUTO) 7.4 % (2-12); NEUTROPHILS # (AUTO) 5.5 X10'3 (1.8-7.7); NEUTROPHILS % (AUTO) 61.8 % (42-75); PLATELET COUNT 379 X10'3 (140-440); RED BLOOD COUNT 3.93 X10'6 (4.20-5.60); RED CELL DISTRIBUTION WIDTH 13.3 % (11.5-14.5); WHITE BLOOD COUNT 8.9 X10'3 (4.5-11.0)
[2021-10-22 11:08] LABS: ALANINE AMINOTRANSFERASE 26 U/L (12-78); ALBUMIN 3.6 G/DL (3.4-5.0); ALBUMIN/GLOBULIN RATIO 0.8 (1.1-1.5); ALKALINE PHOSPHATASE 90 IU/L (46-116); ASPARTATE AMINO TRANSFERASE 16 U/L (10-37); BILIRUBIN,TOTAL 0.5 MG/DL (0.1-1.0); BLOOD UREA NITROGEN 19 MG/DL (7-18); BUN/CREATININE RATIO 21.6 (6.6-38.0); CALCIUM 9.4 MG/DL (8.5-10.1); CHLORIDE 99 MMOL/L (99-107); CREATININE 0.88 MG/DL (0.40-0.90); GLUCOSE 362 MG/DL (70-104); POTASSIUM 3.9 MMOL/L (3.5-5.1); SODIUM 137 MMOL/L (135-145); TOTAL PROTEIN 7.9 G/DL (6.4-8.2); eGFR 65 ML/MIN
[2021-10-22 11:10] LABS: ANION GAP 9 (8-16); TOTAL CARBON DIOXIDE 28.6 MMOL/L (24-32)
== END 2021-10-22 11:26 | disposition home or self-care (01) ==
LOC: ER 09:21
DX: S70.12XA Contusion of left thigh, initial encounter (principal); M79.661 Pain in right lower leg; E11.9 Type 2 diabetes mellitus without complications; E78.00 Pure hypercholesterolemia, unspecified; I10 Essential (primary) hypertension; F12.90 Cannabis use, unspecified, uncomplicated; Z90.49 Acquired absence of other specified parts of digestive tract; Z72.89 Other problems related to lifestyle; Z79.899 Other long term (current) drug therapy; Z79.4 Long term (current) use of insulin; W54.1XXA Struck by dog, initial encounter; Y93.89 Activity, other specified; Y92.89 Other specified places as the place of occurrence of the external cause; Y99.8 Other external cause status
CPT/HCPCS: 36415; 80053; 85025; 93971; 99284

== ENCOUNTER 2023-12-15 09:35 | Emergency (ER) | payer OTHER, MEDICAID ==
[~2023-12-15] VITALS: Ht 172.7 cm; Wt 73.0 kg
[2023-12-15 09:39] VITALS: TEMP 97.7
[2023-12-15] MEDS ORDERED: CELE-193 PO (12:01)
[2023-12-15 12:15] VITALS: BP 170/99; PULSE 78; RESP 16; O2SAT 98
== END 2023-12-15 12:27 | disposition home or self-care (01) ==
LOC: ER 09:35
DX: M25.561 Pain in right knee (principal); M25.562 Pain in left knee; E78.00 Pure hypercholesterolemia, unspecified; I10 Essential (primary) hypertension; E11.9 Type 2 diabetes mellitus without complications; F12.90 Cannabis use, unspecified, uncomplicated; Z79.899 Other long term (current) drug therapy
CPT/HCPCS: 73560; 99283

== ENCOUNTER 2024-01-08 21:05 | Inpatient (IN) | payer OTHER, MEDICAID ==
[~2024-01-08] VITALS: Ht 172.7 cm; Wt 75.9 kg
[~2024-01-08 21:05] MED LIST changes: +CELE-193 PO
[2024-01-08] MEDS: normal saline 1000ml 1,000 ML IV ONE ×3 (21:26→22:42)
[2024-01-08 21:37] LABS: BASOPHILS # (AUTO) 0.1 X10'3 (0-0.2); BASOPHILS % (AUTO) 0.2 % (0-1); EOSINOPHILS % (AUTO) 0 % (0-6); HEMOGLOBIN 12.7 g/dl (12.0-16.0); LYMPHOCYTES # (AUTO) 2.9 X10'3 (1.1-4.8); LYMPHOCYTES % (AUTO) 10.1 % (21-51); MEAN PLATELET VOLUME 8.1 FL (7.4-10.4); MONOCYTES # (AUTO) 1.8 X10'3 (0-0.9); MONOCYTES % (AUTO) 6.3 % (2-12); NEUTROPHILS # (AUTO) 23.8 X10'3 (1.8-7.7); NEUTROPHILS % (AUTO) 83.4 % (42-75); PLATELET COUNT 430 X10'3 (140-440)
[2024-01-08] MEDS: insulin regular, human 10 units/0.1 ml syringe IV ONE (21:41)
[2024-01-08 21:54] LABS: ALANINE AMINOTRANSFERASE 56 U/L (12-78); ALKALINE PHOSPHATASE 118 IU/L (46-116); ANION GAP 39 (8-16); ASPARTATE AMINO TRANSFERASE 20 U/L (10-37); BILIRUBIN,TOTAL 0.6 MG/DL (0.1-1.0); BLOOD UREA NITROGEN 55 MG/DL (7-18); BUN/CREATININE RATIO 20.1 (10.0-20.0); CALCIUM 9.8 MG/DL (8.5-10.1); CHLORIDE 81 MMOL/L (99-107); CREATININE 2.73 MG/DL (0.40-0.90); POTASSIUM 4.6 MMOL/L (3.5-5.1); SODIUM 128 MMOL/L (135-145); eCRCL 21 ML/MIN; eGFR 18 ML/MIN
[2024-01-08] MEDS: ondansetron/PF 4mg/2ml inj IV ONE (21:58)
[2024-01-08 22:00] LABS: HEMATOCRIT 37.9 % (35.0-45.0); MEAN CORPUSCULAR HEMOGLOBIN 34.3 PG (27.0-31.0); MEAN CORPUSCULAR HGB CONC 33.6 g/dL (33.0-36.5); MEAN CORPUSCULAR VOLUME 102.3 FL (78-98)
[2024-01-08 22:01] LABS: RED CELL DISTRIBUTION WIDTH 13.1 % (11.5-14.5)
[2024-01-08 22:03] LABS: WHITE BLOOD COUNT 28.5 X10'3 (4.5-11.0)
[2024-01-08 22:05] LABS: HEMOGLOBIN A1C > 12.0 % (4.5-6.2)
[2024-01-08] MEDS ORDERED: sodium bicarbonate (8.4%) inj. 50 MEQ in dextrose 5% water 500ml 250 ML IV PRN (22:05)
[2024-01-08] MEDS ORDERED: sodium phosphate inj. 30 MMOL in dextrose 5%-water 250 ML IV PRN (22:05)
[2024-01-08] MEDS ORDERED: sodium bicarbonate (8.4%) inj. 100 MEQ in dextrose 5% water 500ml 500 ML IV PRN (22:05)
[2024-01-08] MEDS ORDERED: potassium Cl 20 mEq SR tablet PO PRN ×2 (22:05)
[2024-01-08] MEDS ORDERED: insulin regular, human U-100 3ml vial - multi-dose IV PRN (22:05)
[2024-01-08] MEDS ORDERED: sodium phosphate inj. 15 MMOL in dextrose 5%-water 250 ML IV PRN (22:05)
[2024-01-08] MEDS ORDERED: potassium Cl 40MEQ/1/2NS 520ml 520 ML IV PRN (22:05)
[2024-01-08] MEDS ORDERED: Neutra Phos packet PO PRN (22:05)
[2024-01-08 22:14] LABS: GLUCOSE 1064 MG/DL (70-104)
[2024-01-08 22:15] LABS: TOTAL CARBON DIOXIDE 8.5 MMOL/L (24-32)
[2024-01-08 22:24] LABS: NUCLEATED RED BLOOD CELLS 1 /100WBC (0-0); TOTAL CELLS COUNTED 100
[2024-01-08 22:25] LABS: PLATELET ESTIMATE NORMAL
[2024-01-08 22:26] LABS: ACANTHOCYTES FEW; BURR CELLS FEW
[2024-01-08] MEDS: Insulin Reg/NS 100units/100mL 100 ML IV SCH (22:41)
[2024-01-08 22:58] LABS: ALBUMIN 3.5 G/DL (3.4-5.0); ANION GAP 36 (8-16); BLOOD UREA NITROGEN 58 MG/DL (7-18); BUN/CREATININE RATIO 22.5 (10.0-20.0); CALCIUM 8.6 MG/DL (8.5-10.1); CHLORIDE 90 MMOL/L (99-107); CREATININE 2.58 MG/DL (0.40-0.90); PHOSPHORUS 8.5 MG/DL (2.3-4.5); SODIUM 133 MMOL/L (135-145); eCRCL 23 ML/MIN; eGFR 19 ML/MIN
[2024-01-08 23:01] LABS: POTASSIUM 4.7 MMOL/L (3.5-5.1)
[2024-01-08 23:05] LABS: TOTAL CARBON DIOXIDE 6.8 MMOL/L (24-32)
[2024-01-08] MEDS: normal saline 1000ml 1,000 ML IV SCH (23:07)
[2024-01-08 23:13] LABS: GLUCOSE 930 MG/DL (70-104)
[2024-01-09] VITALS (24 sets, daily range): BP systolic 80–135; BP diastolic 41–77; PULSE 72–105; RESP 12–22; O2SAT 93–100
[2024-01-09 00:10] LABS: URINE AMPHETAMINE SCREEN NEGATIVE (Neg); URINE BARBITUATE SCREEN NEGATIVE (Neg); URINE BENZODIAZEPINES SCREEN NEGATIVE (Neg); URINE CANNABINOID SCREEN POSITIVE (Neg); URINE COCAINE SCREEN NEGATIVE (Neg); URINE METHADONE SCREEN NEGATIVE (Neg); URINE OPIATE SCREEN NEGATIVE (Neg); URINE PHENCYCLIDINE SCREEN NEGATIVE (Neg)
[2024-01-09 01:17] LABS: BILIRUBIN,URINE NEGATIVE (Neg); CLARITY,URINE CLEAR (Clear); COLOR,URINE YELLOW (Yellow); GLUCOSE, URINE >=1000 mg/dl (Neg); KETONES,URINE >=80 mg/dl (Neg); LEUKOCYTE ESTERASE ,URINE NEGATIVE (Neg); NITRITES, URINE NEGATIVE (Neg); OCCULT BLOOD,URINE SMALL (Neg); PH,URINE 5.5 (4.8-8.0); PROTEIN,URINE TRACE mg/dl (Neg); UROBILINOGEN,URINE 0.2 E.U/dL (0.2-1.0)
[2024-01-09 01:26] LABS: UA COLLECTION TYPE FOLEY CATH
[2024-01-09 01:29] LABS: BACTERIA,URINE NONE SEEN /HPF (Neg); SQUAMOUS EPITHELIAL CELL,UR FEW /LPF (FEW); WBC,URINE 0-4 /HPF (0-4)
[2024-01-09 01:30] LABS: MUCUS STRANDS FEW /LPF (Neg)
[2024-01-09] MEDS: normal saline 1000ml 1,000 ML IV SCH (01:41)
[2024-01-09 02:02] LABS: MAGNESIUM 1.5 MG/DL (1.5-2.4); POTASSIUM 3.9 MMOL/L (3.5-5.1)
[2024-01-09] MEDS: ondansetron/PF 4mg/2ml inj IV PRN (04:50)
[2024-01-09] MEDS: acetaminophen 325mg tablet PO PRN (05:14)
[2024-01-09 06:52] LABS: BASOPHILS % (AUTO) 0.1 % (0-1); EOSINOPHILS % (AUTO) 0 % (0-6); HEMOGLOBIN 11.7 g/dl (12.0-16.0); LYMPHOCYTES # (AUTO) 3.2 X10'3 (1.1-4.8); LYMPHOCYTES % (AUTO) 11.9 % (21-51); MEAN CORPUSCULAR HEMOGLOBIN 34.8 PG (27.0-31.0); MEAN CORPUSCULAR HGB CONC 33.3 g/dL (33.0-36.5); MEAN CORPUSCULAR VOLUME 104.6 FL (78-98); MEAN PLATELET VOLUME 7.7 FL (7.4-10.4); MONOCYTES # (AUTO) 1.6 X10'3 (0-0.9); NEUTROPHILS # (AUTO) 22.3 X10'3 (1.8-7.7); PLATELET COUNT 396 X10'3 (140-440); RED BLOOD COUNT 3.35 X10'6 (4.20-5.60)
[2024-01-09 06:58] LABS: SODIUM 141 MMOL/L (135-145)
[2024-01-09 06:59] LABS: ALBUMIN 3.6 G/DL (3.4-5.0); ANION GAP 18 (8-16); BLOOD UREA NITROGEN 42 MG/DL (7-18); CALCIUM 8.3 MG/DL (8.5-10.1); CHLORIDE 104 MMOL/L (99-107); CREATININE 1.75 MG/DL (0.40-0.90); MAGNESIUM 1.7 MG/DL (1.5-2.4); PHOSPHORUS 2.4 MG/DL (2.3-4.5); POTASSIUM 3.6 MMOL/L (3.5-5.1); TOTAL CARBON DIOXIDE 19.1 MMOL/L (24-32); eCRCL 33 ML/MIN; eGFR 29 ML/MIN
[2024-01-09 07:01] LABS: GLUCOSE 421 MG/DL (70-104)
[2024-01-09 07:02] LABS: WHITE BLOOD COUNT 27.2 X10'3 (4.5-11.0)
[2024-01-09] MEDS: K and/or MAG REPLACEMENT MC SCH (08:00)
[2024-01-09 08:09] LABS: TOTAL CELLS COUNTED 100
[2024-01-09 08:10] LABS: PLATELET ESTIMATE NORMAL
[2024-01-09 08:12] LABS: ACANTHOCYTES FEW
[2024-01-09 08:14] LABS: BURR CELLS FEW
[2024-01-09] MEDS: magnesium 4gm in 100ml NS 100 ML IV ONE (08:34)
[2024-01-09] MEDS: enoxaparin 40mg/0.4ml syringe SUBCUT SCH (08:34)
[2024-01-09] MEDS ORDERED: ATOR20TA66 PO (10:45)
[2024-01-09] MEDS ORDERED: INSU100V49 SQ (10:46)
[2024-01-09] MEDS ORDERED: PANT-47 PO (10:49)
[2024-01-09] MEDS ORDERED: AMLO5TAB PO (10:49)
[2024-01-09] MEDS ORDERED: CELE-148 PO (10:49)
[2024-01-09] MEDS: potassium CL 20mEq in D5-1/2NS 1,000 ML IV PRN (12:08)
[2024-01-09 17:20] LABS: BASOPHILS # (AUTO) 0.1 X10'3 (0-0.2); BASOPHILS % (AUTO) 0.4 % (0-1); EOSINOPHILS % (AUTO) 0 % (0-6); HEMATOCRIT 36.4 % (35.0-45.0); HEMOGLOBIN 11.8 g/dl (12.0-16.0); LYMPHOCYTES # (AUTO) 2.5 X10'3 (1.1-4.8); MEAN CORPUSCULAR HEMOGLOBIN 33.7 PG (27.0-31.0); MEAN CORPUSCULAR HGB CONC 32.5 g/dL (33.0-36.5); MEAN CORPUSCULAR VOLUME 103.6 FL (78-98); MEAN PLATELET VOLUME 7.5 FL (7.4-10.4); MONOCYTES # (AUTO) 2.2 X10'3 (0-0.9); MONOCYTES % (AUTO) 8.8 % (2-12); NEUTROPHILS # (AUTO) 20.4 X10'3 (1.8-7.7); NEUTROPHILS % (AUTO) 80.8 % (42-75); PLATELET COUNT 316 X10'3 (140-440); RED BLOOD COUNT 3.52 X10'6 (4.20-5.60); RED CELL DISTRIBUTION WIDTH 13.7 % (11.5-14.5)
[2024-01-09 17:25] LABS: WHITE BLOOD COUNT 25.2 X10'3 (4.5-11.0)
[2024-01-09 17:29] LABS: ALANINE AMINOTRANSFERASE 47 U/L (12-78); ALBUMIN 3.3 G/DL (3.4-5.0); ALBUMIN/GLOBULIN RATIO 0.9 (1.1-1.5); ALKALINE PHOSPHATASE 65 IU/L (46-116); ANION GAP 10 (8-16); ASPARTATE AMINO TRANSFERASE 29 U/L (10-37); BILIRUBIN,TOTAL 0.4 MG/DL (0.1-1.0); BLOOD UREA NITROGEN 35 MG/DL (7-18); BUN/CREATININE RATIO 25.5 (10.0-20.0); CHLORIDE 110 MMOL/L (99-107); CREATININE 1.37 MG/DL (0.40-0.90); GLUCOSE 128 MG/DL (70-104); POTASSIUM 3.4 MMOL/L (3.5-5.1); SODIUM 141 MMOL/L (135-145); TOTAL CARBON DIOXIDE 21.5 MMOL/L (24-32); TOTAL PROTEIN 6.8 G/DL (6.4-8.2); eCRCL 42 ML/MIN; eGFR 39 ML/MIN
[2024-01-09] MEDS ORDERED: dextrose 50%-water 50ml dispensing syringe IV PRN ×2 (18:00)
[2024-01-09] MEDS ORDERED: DEXTROSE 15 GM of carb/4 tabs (each vial/BOTTLE has 4 tablets) PO PRN ×2 (18:00)
[2024-01-09] MEDS ORDERED: glucagon, human recombinant 1mg kit SUBCUT PRN (18:00)
[2024-01-09] MEDS: INSULIN LISPRO 100 UNIT/ML INSULN.PEN MULTI-DOSE SQ SCH (21:08)
[2024-01-09] MEDS: insulin glargine (Lantus) pen - multi-dose SQ SCH (21:08)
[2024-01-09] MEDS: pantoprazole 40mg Tablet.DR PO ONE (22:00)
[2024-01-09] MEDS: proCHLORperazine 10 MG/2 ml inj IV PRN (22:00)
[2024-01-10] VITALS (9 sets, daily range): BP systolic 105–149; BP diastolic 56–83; PULSE 67–76; RESP 12–20; TEMP 97.6–98.6; O2SAT 95–99
[2024-01-10 06:55] LABS: BASOPHILS % (AUTO) 0.1 % (0-1); EOSINOPHILS % (AUTO) 0 % (0-6); HEMATOCRIT 31.2 % (35.0-45.0); HEMOGLOBIN 10.6 g/dl (12.0-16.0); LYMPHOCYTES # (AUTO) 2.1 X10'3 (1.1-4.8); LYMPHOCYTES % (AUTO) 11.4 % (21-51); MEAN CORPUSCULAR HEMOGLOBIN 35.1 PG (27.0-31.0); MEAN CORPUSCULAR VOLUME 103.2 FL (78-98); MEAN PLATELET VOLUME 7.4 FL (7.4-10.4); MONOCYTES # (AUTO) 1.1 X10'3 (0-0.9); MONOCYTES % (AUTO) 6.1 % (2-12); NEUTROPHILS # (AUTO) 14.9 X10'3 (1.8-7.7); NEUTROPHILS % (AUTO) 82.4 % (42-75); PLATELET COUNT 294 X10'3 (140-440); RED BLOOD COUNT 3.03 X10'6 (4.20-5.60); RED CELL DISTRIBUTION WIDTH 13.9 % (11.5-14.5); WHITE BLOOD COUNT 18.2 X10'3 (4.5-11.0)
[2024-01-10 07:17] LABS: ALBUMIN 2.8 G/DL (3.4-5.0); ANION GAP 9 (8-16); BLOOD UREA NITROGEN 25 MG/DL (7-18); BUN/CREATININE RATIO 21.7 (10.0-20.0); CALCIUM 7.7 MG/DL (8.5-10.1); CHLORIDE 110 MMOL/L (99-107); CREATININE 1.15 MG/DL (0.40-0.90); GLUCOSE 185 MG/DL (70-104); MAGNESIUM 2.2 MG/DL (1.5-2.4); POTASSIUM 3.8 MMOL/L (3.5-5.1); SODIUM 143 MMOL/L (135-145); TOTAL CARBON DIOXIDE 23.6 MMOL/L (24-32); eCRCL 51 ML/MIN; eGFR 48 ML/MIN
[2024-01-10] MEDS: pantoprazole 40mg Tablet.DR PO SCH (07:30)
[2024-01-10] MEDS: potassium CL 20mEq in D5-1/2NS 1,000 ML IV SCH (10:02)
[2024-01-11 02:00] VITALS: BP 138/84; PULSE 66; RESP 20; TEMP 98.1; O2SAT 99
[2024-01-11 06:00] VITALS: BP 138/98; PULSE 74; RESP 19; TEMP 98.3; O2SAT 96
[2024-01-11 06:45] LABS: BASOPHILS % (AUTO) 0.2 % (0-1); EOSINOPHILS % (AUTO) 0.1 % (0-6); HEMATOCRIT 33.1 % (35.0-45.0); HEMOGLOBIN 11.1 g/dl (12.0-16.0); LYMPHOCYTES # (AUTO) 2.6 X10'3 (1.1-4.8); LYMPHOCYTES % (AUTO) 22.9 % (21-51); MEAN CORPUSCULAR HEMOGLOBIN 34.8 PG (27.0-31.0); MEAN CORPUSCULAR HGB CONC 33.6 g/dL (33.0-36.5); MEAN CORPUSCULAR VOLUME 103.8 FL (78-98); MEAN PLATELET VOLUME 7.5 FL (7.4-10.4); MONOCYTES # (AUTO) 0.8 X10'3 (0-0.9); MONOCYTES % (AUTO) 7.1 % (2-12); NEUTROPHILS # (AUTO) 7.9 X10'3 (1.8-7.7); NEUTROPHILS % (AUTO) 69.7 % (42-75); PLATELET COUNT 301 X10'3 (140-440); RED BLOOD COUNT 3.19 X10'6 (4.20-5.60); RED CELL DISTRIBUTION WIDTH 14.3 % (11.5-14.5); WHITE BLOOD COUNT 11.3 X10'3 (4.5-11.0)
[2024-01-11 06:46] LABS: ANION GAP 7 (8-16); BLOOD UREA NITROGEN 16 MG/DL (7-18); BUN/CREATININE RATIO 16.3 (10.0-20.0); CALCIUM 8.3 MG/DL (8.5-10.1); CHLORIDE 108 MMOL/L (99-107); CREATININE 0.98 MG/DL (0.40-0.90); GLUCOSE 108 MG/DL (70-104); MAGNESIUM 1.8 MG/DL (1.5-2.4); POTASSIUM 3.9 MMOL/L (3.5-5.1); SODIUM 143 MMOL/L (135-145); TOTAL CARBON DIOXIDE 27.8 MMOL/L (24-32); eCRCL 59 ML/MIN; eGFR 57 ML/MIN
[2024-01-11 08:00] VITALS: RESP 16; O2SAT 98
[2024-01-11 11:00] VITALS: BP 146/80; PULSE 78; RESP 14; TEMP 98.7; O2SAT 98
== END 2024-01-11 14:28 | disposition home or self-care (01) | DRG 637 ==
LOC: ER 21:05 → ED HOLD 23:20 → EDBEDREQ 23:35 → CICU 2S 01-09 01:03 → PCU 3S 01-10 00:50
PROVIDERS: ADMIT Student in an Organized Health Care Education/Training Program; ATTEND Student in an Organized Health Care Education/Training Program
DX: E11.10 Type 2 diabetes mellitus with ketoacidosis without coma (principal); G93.41 Metabolic encephalopathy; N17.0 Acute kidney failure with tubular necrosis; N17.9 Acute kidney failure, unspecified; E78.00 Pure hypercholesterolemia, unspecified; E11.40 Type 2 diabetes mellitus with diabetic neuropathy, unspecified; I10 Essential (primary) hypertension; M54.9 Dorsalgia, unspecified; D72.829 Elevated white blood cell count, unspecified; G89.29 Other chronic pain; E78.5 Hyperlipidemia, unspecified; Z90.81 Acquired absence of spleen; Z90.49 Acquired absence of other specified parts of digestive tract; Z79.84 Long term (current) use of oral hypoglycemic drugs; Z79.4 Long term (current) use of insulin; Z79.899 Other long term (current) drug therapy; Z91.148 Patient's other noncompliance with medication regimen for other reason
CPT/HCPCS: 36415; 71045; 80048; 80053; 80305; 81001; 81003; 82947; 82948; 83036; 83605; 83735; 84100; 84132; 85007; 85025; 87081; 99285; A6213; A6449; G0378; J0780; J1650; J1815; J2405; J3475; J3480; J7030

== ENCOUNTER 2024-01-14 20:17 | Inpatient (IN) | payer OTHER, MEDICAID ==
[~2024-01-14] VITALS: Ht 175.3 cm; Wt 75.9 kg
[~2024-01-14 20:17] MED LIST changes: +AMLO5TAB PO; -AMLO5TAB4 PO; +ATOR20TA66 PO; +CELE-148 PO; -CELE-193 PO; -INSU100V11 SQ; +INSU100V49 SQ; +PANT-47 PO; -PANT40TA54 PO; -SIMV-42 PO
[2024-01-14] MEDS: ringers solution, lacted 1,000 ML IV ONE (20:51)
[2024-01-14 21:03] LABS: URINE HCG NEGATIVE (NEG)
[2024-01-14 21:04] LABS: BILIRUBIN,URINE NEGATIVE (Neg); CLARITY,URINE CLEAR (Clear); COLOR,URINE YELLOW (Yellow); GLUCOSE, URINE NEGATIVE (Neg); KETONES,URINE NEGATIVE (Neg); LEUKOCYTE ESTERASE ,URINE NEGATIVE (Neg); NITRITES, URINE NEGATIVE (Neg); OCCULT BLOOD,URINE TRACE-INTACT (Neg); PROTEIN,URINE 30 mg/dl (Neg); UROBILINOGEN,URINE 0.2 E.U/dL (0.2-1.0)
[2024-01-14 21:04] LABS: BASOPHILS % (AUTO) 0.2 % (0-1); EOSINOPHILS % (AUTO) 0 % (0-6); HEMATOCRIT 39.4 % (35.0-45.0); HEMOGLOBIN 13.1 g/dl (12.0-16.0); LYMPHOCYTES # (AUTO) 2.8 X10'3 (1.1-4.8); LYMPHOCYTES % (AUTO) 23.9 % (21-51); MEAN CORPUSCULAR HEMOGLOBIN 35.2 PG (27.0-31.0); MEAN CORPUSCULAR HGB CONC 33.1 g/dL (33.0-36.5); MEAN CORPUSCULAR VOLUME 106.1 FL (78-98); MEAN PLATELET VOLUME 7.7 FL (7.4-10.4); MONOCYTES # (AUTO) 0.7 X10'3 (0-0.9); MONOCYTES % (AUTO) 6.3 % (2-12); NEUTROPHILS # (AUTO) 8.1 X10'3 (1.8-7.7); NEUTROPHILS % (AUTO) 69.6 % (42-75); PLATELET COUNT 416 X10'3 (140-440); RED BLOOD COUNT 3.71 X10'6 (4.20-5.60); RED CELL DISTRIBUTION WIDTH 13.8 % (11.5-14.5); WHITE BLOOD COUNT 11.7 X10'3 (4.5-11.0)
[2024-01-14 21:13] LABS: UA COLLECTION TYPE FOLEY CATH
[2024-01-14 21:14] LABS: BACTERIA,URINE 1+ /HPF (Neg); MUCUS STRANDS NONE SEEN /LPF (Neg); RBC,URINE 0-2 /HPF (0-2); SQUAMOUS EPITHELIAL CELL,UR FEW /LPF (FEW); WBC,URINE 0-4 /HPF (0-4)
[2024-01-14 21:14] LABS: ALBUMIN 3.9 G/DL (3.4-5.0); ANION GAP 17 (8-16); BLOOD UREA NITROGEN 16 MG/DL (7-18); BUN/CREATININE RATIO 11.2 (10.0-20.0); CHLORIDE 101 MMOL/L (99-107); CREATININE 1.43 MG/DL (0.40-0.90); GLUCOSE 132 MG/DL (70-104); MAGNESIUM 1.6 MG/DL (1.5-2.4); POTASSIUM 4.1 MMOL/L (3.5-5.1); SODIUM 142 MMOL/L (135-145); TOTAL CARBON DIOXIDE 24.2 MMOL/L (24-32); eCRCL 42 ML/MIN; eGFR 37 ML/MIN
[2024-01-14 21:15] LABS: FINE GRANULAR CAST 0-3 /LPF (NEGATIVE); HYALINE CASTS 0-3 /LPF (NEGATIVE); TRANSITIONAL EPI CELLS,URINE MODERATE /HPF
[2024-01-14] MEDS: acetaminophen 325mg tablet PO ONE (21:20)
[2024-01-14 21:22] LABS: LACTIC SEPSIS 12.1 MMOL/L (0.4-2.0)
[2024-01-14 21:30] LABS: URINE AMPHETAMINE SCREEN NEGATIVE (Neg); URINE BARBITUATE SCREEN NEGATIVE (Neg); URINE BENZODIAZEPINES SCREEN NEGATIVE (Neg); URINE CANNABINOID SCREEN POSITIVE (Neg); URINE COCAINE SCREEN NEGATIVE (Neg); URINE METHADONE SCREEN NEGATIVE (Neg); URINE OPIATE SCREEN NEGATIVE (Neg); URINE PHENCYCLIDINE SCREEN NEGATIVE (Neg)
[2024-01-14] MEDS ORDERED: iohexol 300mg/ml 100ml inj. ONE (21:30)
[2024-01-14 21:46] LABS: SALICYLATE 2.6 MG/DL (4.0-20.0)
[2024-01-14] MEDS ORDERED: iohexol 350MG/ML 100ml bottle IV ONE ×2 (21:46→23:04)
[2024-01-14 21:48] LABS: ACETONE NEGATIVE (NEGATIVE)
[2024-01-14 21:52] LABS: ACETAMINOPHEN < 2.0 UG/ML (10-30); ETHANOL < 10 MG/DL (<10)
[2024-01-14] MEDS: VANCOmycin 1250MG/NS 250ml Bag 250 ML IV ONE (22:33)
[2024-01-14] MEDS: CefTRIAXone/D5W-Rocephin 1gm 50 ML IV ONE (22:33)
[2024-01-14] MEDS: ketamine 10mg/ml 20ml inj vial IV ONE (23:05)
[2024-01-14] MEDS ORDERED: NORMAL SALINE IV ONE (23:30)
[2024-01-14] MEDS ORDERED: ACYCLOVIR IV ONE (23:30)
[2024-01-14] MEDS: labetalol 20mg/4ml (5mg/ml) syringe IV ONE (23:55)
[2024-01-15] VITALS (7 sets, daily range): BP systolic 113–183; BP diastolic 67–101; PULSE 67–85; RESP 14–22; TEMP 97.8–98.9; O2SAT 93–98
[2024-01-15] MEDS: ketamine 10mg/ml 20ml inj vial ONE (00:02)
[2024-01-15 01:37] LABS: GLUCOSE,CSF 45 MG/DL (40-75); TOTAL PROTEIN,CSF 291 MG/DL (30-60)
[2024-01-15] MEDS: ketamine 10mg/ml 20ml inj vial IV ONE (01:59)
[2024-01-15 02:03] LABS: APPEARANCE,CSF CLEAR; CSF SUPERNATANT COLOR COLORLESS; CSF VOLUME 5 ML; LYMPHOCYTES,CSF 69 % (40-80); MONOCYTES,CSF 23 % (15-45); NEUTRO,CSF 8 % (0-6); TUBE# COUNTED 1
[2024-01-15 02:06] LABS: APPEARANCE,CSF CLEAR; CSF RBC 2 /CU MM (0); CSF SUPERNATANT COLOR COLORLESS; CSF VOLUME 5 ML; CSF WBC CT 57 /CU MM (0-5); TUBE# COUNTED 4
[2024-01-15 02:07] LABS: CSF RBC 1 /CU MM (0); CSF WBC CT 63 /CU MM (0-5); LYMPHOCYTES,CSF 74 % (40-80); MONOCYTES,CSF 22 % (15-45); NEUTRO,CSF 4 % (0-6)
[2024-01-15] MEDS: ringers solution, lacted 1,000 ML IV ONE ×2 (02:15→02:40)
[2024-01-15] MEDS: ACYCLOVIR IV ONE (02:17)
[2024-01-15] MEDS: NORMAL SALINE IV ONE (02:17)
[2024-01-15] MEDS: acetaminophen 1,000mg/100ml IV 100 ML IV SCH (02:17)
[2024-01-15] MEDS ORDERED: ondansetron/PF 4mg/2ml inj IV PRN (02:40)
[2024-01-15] MEDS ORDERED: potassium Cl 40MEQ/1/2NS 520ml 520 ML IV PRN (02:40)
[2024-01-15] MEDS ORDERED: magnesium Cl slow-release 64mg tablet PO PRN (02:40)
[2024-01-15] MEDS ORDERED: magnesium 4gm in 100ml NS 100 ML IV PRN (02:40)
[2024-01-15] MEDS ORDERED: acetaminophen 325mg tablet PO PRN (02:40)
[2024-01-15] MEDS ORDERED: magnesium 2GM in 50ml NS 50 ML IV PRN (02:40)
[2024-01-15] MEDS ORDERED: potassium Cl 20 mEq SR tablet PO PRN (02:40)
[2024-01-15] MEDS: morphine 2 MG/ML inj. syringe IV PRN (02:52)
[2024-01-15] MEDS ORDERED: DEXTROSE 15 GM of carb/4 tabs (each vial/BOTTLE has 4 tablets) PO PRN (03:15)
[2024-01-15] MEDS ORDERED: glucagon, human recombinant 1mg kit SUBCUT PRN (03:15)
[2024-01-15] MEDS ORDERED: dextrose 50%-water 50ml dispensing syringe IV PRN (03:15)
[2024-01-15] MEDS: hydrALAZINE 20mg/ml inj. IV PRN (04:49)
[2024-01-15] MEDS: normal saline 1000ml 1,000 ML IV SCH (04:58)
[2024-01-15] MEDS: dextrose 50%-water 50ml dispensing syringe IV PRN (06:53)
[2024-01-15] MEDS: INSULIN LISPRO 100 UNIT/ML INSULN.PEN MULTI-DOSE SQ SCH (07:00)
[2024-01-15] MEDS: ACYCLOVIR IV SCH ×2 (07:13→20:00)
[2024-01-15] MEDS: CefTRIAXone 2gm/D5W 50ml BAG 50 ML IV SCH ×2 (07:13→20:08)
[2024-01-15] MEDS: NORMAL SALINE IV SCH ×2 (07:13→20:00)
[2024-01-15] MEDS ORDERED: ACYCLOVIR IV SCH (08:00)
[2024-01-15] MEDS ORDERED: NORMAL SALINE IV SCH (08:00)
[2024-01-15] MEDS: K and/or MAG REPLACEMENT MC SCH (08:00)
[2024-01-15] MEDS: dexamethasone sod phosphate 10mg/ml inj IV SCH (08:30)
[2024-01-15] MEDS: ampicillin inj 2 GM in normal saline 100ml IV soln 100 ML IV SCH (09:29)
[2024-01-15 15:06] LABS: HIV ANTIBODY 1&2 RAPID NON-REACTIVE (Neg)
[2024-01-15] MEDS: heparin, porcine 5000 units/ml vial SQ SCH (15:11)
[2024-01-15] MEDS: insulin glargine (Lantus) pen - multi-dose SQ SCH (21:00)
[2024-01-15] MEDS ORDERED: vancomycin/NS 1 GM ADD-VANTAGE 250 ML IV SCH (22:00)
[2024-01-15] MEDS ORDERED: vancomycin/NS 500MG ADD-VANT 100 ML IV SCH (22:00)
[2024-01-15] MEDS: dextrose 5%-normal saline 1,000 ML IV SCH (22:50)
[2024-01-16] VITALS (8 sets, daily range): BP systolic 135–157; BP diastolic 70–87; PULSE 68–84; RESP 13–18; TEMP 96.8–98.7; O2SAT 94–98
[2024-01-16 06:46] LABS: BASOPHILS % (AUTO) 0.5 % (0-1); EOSINOPHILS % (AUTO) 0 % (0-6); HEMATOCRIT 34.7 % (35.0-45.0); HEMOGLOBIN 11.6 g/dl (12.0-16.0); LYMPHOCYTES # (AUTO) 2.9 X10'3 (1.1-4.8); LYMPHOCYTES % (AUTO) 35.1 % (21-51); MEAN CORPUSCULAR HEMOGLOBIN 35.3 PG (27.0-31.0); MEAN CORPUSCULAR HGB CONC 33.4 g/dL (33.0-36.5); MEAN CORPUSCULAR VOLUME 105.8 FL (78-98); MEAN PLATELET VOLUME 7.5 FL (7.4-10.4); MONOCYTES # (AUTO) 1.3 X10'3 (0-0.9); MONOCYTES % (AUTO) 16.2 % (2-12); NEUTROPHILS % (AUTO) 48.2 % (42-75); PLATELET COUNT 380 X10'3 (140-440); RED BLOOD COUNT 3.28 X10'6 (4.20-5.60); RED CELL DISTRIBUTION WIDTH 13.8 % (11.5-14.5); WHITE BLOOD COUNT 8.2 X10'3 (4.5-11.0)
[2024-01-16 07:07] LABS: ALANINE AMINOTRANSFERASE 64 U/L (12-78); ALBUMIN 3.1 G/DL (3.4-5.0); ALBUMIN/GLOBULIN RATIO 0.9 (1.1-1.5); ALKALINE PHOSPHATASE 72 IU/L (46-116); ANION GAP 11 (8-16); ASPARTATE AMINO TRANSFERASE 47 U/L (10-37); BILIRUBIN,TOTAL 0.3 MG/DL (0.1-1.0); BLOOD UREA NITROGEN 7 MG/DL (7-18); BUN/CREATININE RATIO 8.4 (10.0-20.0); CALCIUM 8.3 MG/DL (8.5-10.1); CHLORIDE 104 MMOL/L (99-107); CREATININE 0.83 MG/DL (0.40-0.90); GLUCOSE 54 MG/DL (70-104); POTASSIUM 3.3 MMOL/L (3.5-5.1); SODIUM 141 MMOL/L (135-145); TOTAL CARBON DIOXIDE 25.6 MMOL/L (24-32); TOTAL PROTEIN 6.7 G/DL (6.4-8.2); eCRCL 73 ML/MIN; eGFR 69 ML/MIN
[2024-01-16 07:48] LABS: TOTAL CELLS COUNTED 100
[2024-01-16 07:49] LABS: PLATELET ESTIMATE NORMAL
[2024-01-16] MEDS: potassium Cl 20 mEq SR tablet PO PRN (08:18)
[2024-01-16] MEDS: DEXTROSE 15 GM of carb/4 tabs (each vial/BOTTLE has 4 tablets) PO PRN (08:18)
[2024-01-16] MEDS: ACYCLOVIR IV SCH (16:24)
[2024-01-16] MEDS: NORMAL SALINE IV SCH (16:24)
[2024-01-16] MEDS: morphine 2 MG/ML inj. syringe IV PRN (20:36)
[2024-01-16] MEDS: valacyclovir 500mg tablet PO SCH (23:49)
[2024-01-17] VITALS (8 sets, daily range): BP systolic 112–153; BP diastolic 70–86; PULSE 72–84; RESP 12–20; TEMP 97.2–98.8; O2SAT 93–99
[2024-01-17 05:55] LABS: BASOPHILS % (AUTO) 0.5 % (0-1); EOSINOPHILS % (AUTO) 0 % (0-6); HEMATOCRIT 33.5 % (35.0-45.0); HEMOGLOBIN 11.2 g/dl (12.0-16.0); LYMPHOCYTES # (AUTO) 1.8 X10'3 (1.1-4.8); LYMPHOCYTES % (AUTO) 26.7 % (21-51); MEAN CORPUSCULAR HEMOGLOBIN 34.6 PG (27.0-31.0); MEAN CORPUSCULAR HGB CONC 33.4 g/dL (33.0-36.5); MEAN CORPUSCULAR VOLUME 103.4 FL (78-98); MEAN PLATELET VOLUME 6.9 FL (7.4-10.4); MONOCYTES # (AUTO) 1.2 X10'3 (0-0.9); MONOCYTES % (AUTO) 17.7 % (2-12); NEUTROPHILS # (AUTO) 3.6 X10'3 (1.8-7.7); NEUTROPHILS % (AUTO) 55.1 % (42-75); PLATELET COUNT 400 X10'3 (140-440); RED BLOOD COUNT 3.24 X10'6 (4.20-5.60); RED CELL DISTRIBUTION WIDTH 13.7 % (11.5-14.5); WHITE BLOOD COUNT 6.6 X10'3 (4.5-11.0)
[2024-01-17 06:08] LABS: ALANINE AMINOTRANSFERASE 55 U/L (12-78); ALBUMIN 2.9 G/DL (3.4-5.0); ALBUMIN/GLOBULIN RATIO 0.9 (1.1-1.5); ALKALINE PHOSPHATASE 70 IU/L (46-116); ANION GAP 6 (8-16); ASPARTATE AMINO TRANSFERASE 31 U/L (10-37); BILIRUBIN,TOTAL 0.3 MG/DL (0.1-1.0); BLOOD UREA NITROGEN 7 MG/DL (7-18); BUN/CREATININE RATIO 7.4 (10.0-20.0); CALCIUM 8.1 MG/DL (8.5-10.1); CHLORIDE 104 MMOL/L (99-107); CREATININE 0.94 MG/DL (0.40-0.90); GLUCOSE 203 MG/DL (70-104); POTASSIUM 3.7 MMOL/L (3.5-5.1); SODIUM 137 MMOL/L (135-145); TOTAL CARBON DIOXIDE 27.4 MMOL/L (24-32); TOTAL PROTEIN 6.1 G/DL (6.4-8.2); eCRCL 64 ML/MIN; eGFR 60 ML/MIN
[2024-01-17 08:28] LABS: HSV 1 PCR Negative (Negative); HSV 2 PCR Negative (Negative)
[2024-01-17] MEDS: INSULIN LISPRO 100 UNIT/ML INSULN.PEN MULTI-DOSE SQ SCH (09:19)
[2024-01-17] MEDS ORDERED: INSULIN LISPRO 100 UNIT/ML INSULN.PEN MULTI-DOSE SQ SCH (12:00)
[2024-01-17] MEDS: mag hydrox/Alum hydrox/simeth 30ml oral suspension PO PRN (20:36)
[2024-01-17] MEDS: insulin glargine (Lantus) pen - multi-dose SQ SCH (21:00)
[2024-01-17] MEDS ORDERED: VANCOMYCIN LEVEL IV ONE (21:30)
[2024-01-18 02:00] VITALS: BP 115/73; PULSE 81; RESP 18; TEMP 97.8; O2SAT 98
[2024-01-18] MEDS: magnesium hydroxide 30ml (MOM) UD suspension PO PRN (05:20)
[2024-01-18 06:00] VITALS: BP 133/68; PULSE 81; RESP 20; TEMP 97.6; O2SAT 95
[2024-01-18 06:59] LABS: BASOPHILS % (AUTO) 0.4 % (0-1); EOSINOPHILS % (AUTO) 0 % (0-6); LYMPHOCYTES # (AUTO) 1.7 X10'3 (1.1-4.8); LYMPHOCYTES % (AUTO) 23.6 % (21-51); MEAN CORPUSCULAR HEMOGLOBIN 34.8 PG (27.0-31.0); MEAN CORPUSCULAR HGB CONC 33.3 g/dL (33.0-36.5); MEAN CORPUSCULAR VOLUME 104.3 FL (78-98); MEAN PLATELET VOLUME 6.9 FL (7.4-10.4); MONOCYTES % (AUTO) 13.3 % (2-12); NEUTROPHILS # (AUTO) 4.6 X10'3 (1.8-7.7); NEUTROPHILS % (AUTO) 62.7 % (42-75); PLATELET COUNT 420 X10'3 (140-440); RED BLOOD COUNT 3.16 X10'6 (4.20-5.60); RED CELL DISTRIBUTION WIDTH 13.5 % (11.5-14.5); WHITE BLOOD COUNT 7.3 X10'3 (4.5-11.0)
[2024-01-18 07:12] LABS: ALANINE AMINOTRANSFERASE 54 U/L (12-78); ALBUMIN/GLOBULIN RATIO 0.9 (1.1-1.5); ALKALINE PHOSPHATASE 72 IU/L (46-116); ANION GAP 9 (8-16); ASPARTATE AMINO TRANSFERASE 29 U/L (10-37); BILIRUBIN,TOTAL 0.5 MG/DL (0.1-1.0); BLOOD UREA NITROGEN 9 MG/DL (7-18); BUN/CREATININE RATIO 9.5 (10.0-20.0); CALCIUM 8.2 MG/DL (8.5-10.1); CHLORIDE 101 MMOL/L (99-107); CREATININE 0.95 MG/DL (0.40-0.90); GLUCOSE 243 MG/DL (70-104); POTASSIUM 3.9 MMOL/L (3.5-5.1); SODIUM 137 MMOL/L (135-145); TOTAL CARBON DIOXIDE 27.3 MMOL/L (24-32); TOTAL PROTEIN 6.3 G/DL (6.4-8.2); eCRCL 63 ML/MIN; eGFR 59 ML/MIN
[2024-01-18 08:00] VITALS: RESP 20; O2SAT 95
[2024-01-18] MEDS ORDERED: VALA500T41 PO (10:24)
[2024-01-18 11:00] VITALS: BP 132/79; PULSE 80; RESP 16; TEMP 97.3; O2SAT 100
[2024-01-18] MEDS: INSULIN LISPRO 100 UNIT/ML INSULN.PEN MULTI-DOSE SQ SCH (12:00)
[2024-01-18] MEDS ORDERED: insulin glargine (Lantus) pen - multi-dose SQ SCH (21:00)
[2024-01-22 13:24] LABS: CSF WEST NILE VIRUS, IGG Negative (Negative); CSF WEST NILE VIRUS, IGM Negative (Negative); LYME IGG P18 AB Absent (.); LYME IGG P23 AB Absent (.); LYME IGG P28 AB Absent (.); LYME IGG P30 AB Absent (.); LYME IGG P39 AB Absent (.); LYME IGG P41 AB Absent (.); LYME IGG P45 AB Absent (.); LYME IGG P58 AB Absent (.); LYME IGG P66 AB Absent (.); LYME IGG P93 AB Absent (.); LYME IGG WB INTERP Negative (.); LYME IGM P23 AB Absent (.); LYME IGM P39 AB Absent (.); LYME IGM P41 AB Absent (.); LYME IGM WB INTERP Negative (.)
== END 2024-01-18 14:57 | disposition home or self-care (01) | DRG 75 ==
LOC: ER 20:17 → ED HOLD 01-15 02:42 → PCU 3S 01-15 04:29
PROVIDERS: ADMIT Internal Medicine Sleep Medicine; ATTEND Family Medicine
PROC: BW251ZZ Computerized Tomography (CT Scan) of Chest, Abdomen and Pelvis using Low Osmolar Contrast (ICD-10-PCS; 2024-01-14)
PROC: B3251ZZ Computerized Tomography (CT Scan) of Bilateral Common Carotid Arteries using Low Osmolar Contrast (ICD-10-PCS; 2024-01-14)
PROC: B32G1ZZ Computerized Tomography (CT Scan) of Bilateral Vertebral Arteries using Low Osmolar Contrast (ICD-10-PCS; 2024-01-14)
PROC: B32R1ZZ Computerized Tomography (CT Scan) of Intracranial Arteries using Low Osmolar Contrast (ICD-10-PCS; 2024-01-14)
PROC: B3281ZZ Computerized Tomography (CT Scan) of Bilateral Internal Carotid Arteries using Low Osmolar Contrast (ICD-10-PCS; 2024-01-14)
PROC: 009U3ZX Drainage of Spinal Canal, Percutaneous Approach, Diagnostic (ICD-10-PCS; 2024-01-15)
PROC: 4A00X4Z Measurement of Central Nervous Electrical Activity, External Approach (ICD-10-PCS; principal; 2024-01-17)
DX: B00.3 Herpesviral meningitis (principal); G93.41 Metabolic encephalopathy; N17.0 Acute kidney failure with tubular necrosis; I10 Essential (primary) hypertension; E78.00 Pure hypercholesterolemia, unspecified; E11.65 Type 2 diabetes mellitus with hyperglycemia; R79.89 Other specified abnormal findings of blood chemistry; F12.90 Cannabis use, unspecified, uncomplicated; Z79.84 Long term (current) use of oral hypoglycemic drugs; Z79.899 Other long term (current) drug therapy; Z79.4 Long term (current) use of insulin; Z90.49 Acquired absence of other specified parts of digestive tract; Z90.81 Acquired absence of spleen; Z86.73 Personal history of transient ischemic attack (TIA), and cerebral infarction without residual deficits
CPT/HCPCS: 36415; 70450; 70496; 70498; 71045; 71275; 74174; 80048; 80053; 80305; 80320; 80329; 81001; 81025; 82009; 82140; 82800; 82945; 82948; 83605; 83735; 84145; 84157; 84484; 85007; 85025; 86592; 86617; 86703; 86788; 86789; 87015; 87040; 87070; 87081; 87529; 89051; 93005; 95816; 96365; 96367; 96375; 97110; 97116; 97161; 97530; 99285; C1758; G0378; J0131; J0133; J0290; J0360; J0696; J1100; J1644; J1815; J2270; J3370; J3490; J7030; J7040; J7042; J7050; J7070; J7120; Q9967

== ENCOUNTER 2024-03-10 05:11 | Emergency (ER) | payer OTHER, MEDICAID ==
[~2024-03-10] VITALS: Ht 172.7 cm; Wt 68.2 kg
[~2024-03-10 05:11] MED LIST changes: +VALA500T41 PO
[2024-03-10 07:18] VITALS: BP 171/118; PULSE 74; RESP 16; TEMP 97.5; O2SAT 97
[2024-03-10] MEDS ORDERED: CYCL-1 PO (07:22)
[2024-03-10] MEDS: cyclobenzaprine 10mg tablet PO ONE (07:31)
[2024-03-10] MEDS: naproxen 500mg tablet PO ONE (07:31)
[2024-03-10] MEDS: orphenadrine citrate 60mg/2ml inj. IM ONE (07:32)
== END 2024-03-10 07:40 | disposition home or self-care (01) ==
LOC: ER 05:12
DX: M54.32 Sciatica, left side (principal); E11.9 Type 2 diabetes mellitus without complications; I10 Essential (primary) hypertension; F12.90 Cannabis use, unspecified, uncomplicated; Z79.4 Long term (current) use of insulin
CPT/HCPCS: 96372; 99284; J2360

== ENCOUNTER 2024-03-19 10:26 | Emergency (ER) | payer OTHER, MEDICAID ==
[~2024-03-19] VITALS: Ht 172.7 cm; Wt 63.6 kg
[~2024-03-19 10:26] MED LIST changes: +CYCL-1 PO
[2024-03-19 10:31] VITALS: TEMP 98.1
[2024-03-19 11:32] LABS: BASOPHILS % (AUTO) 0.4 % (0-1); EOSINOPHILS % (AUTO) 0 % (0-6); HEMATOCRIT 35.4 % (35.0-45.0); HEMOGLOBIN 11.6 g/dl (12.0-16.0); LYMPHOCYTES % (AUTO) 19.5 % (21-51); MEAN CORPUSCULAR HEMOGLOBIN 34.3 PG (27.0-31.0); MEAN CORPUSCULAR HGB CONC 32.7 g/dL (33.0-36.5); MEAN CORPUSCULAR VOLUME 104.7 FL (78-98); MONOCYTES # (AUTO) 0.4 X10'3 (0-0.9); MONOCYTES % (AUTO) 4.2 % (2-12); NEUTROPHILS # (AUTO) 7.9 X10'3 (1.8-7.7); NEUTROPHILS % (AUTO) 75.9 % (42-75); PLATELET COUNT 699 X10'3 (140-440); RED BLOOD COUNT 3.38 X10'6 (4.20-5.60); RED CELL DISTRIBUTION WIDTH 14.4 % (11.5-14.5); WHITE BLOOD COUNT 10.4 X10'3 (4.5-11.0)
[2024-03-19 11:49] LABS: ALANINE AMINOTRANSFERASE 22 U/L (12-78); ALBUMIN 3.5 G/DL (3.4-5.0); ALKALINE PHOSPHATASE 221 IU/L (46-116); ANION GAP 15 (8-16); ASPARTATE AMINO TRANSFERASE 17 U/L (10-37); BILIRUBIN,TOTAL 0.5 MG/DL (0.1-1.0); BLOOD UREA NITROGEN 37 MG/DL (7-18); BUN/CREATININE RATIO 31.4 (10.0-20.0); CALCIUM 9.4 MG/DL (8.5-10.1); CHLORIDE 91 MMOL/L (99-107); CREATININE 1.18 MG/DL (0.40-0.90); LIPASE 47 U/L (16-77); POTASSIUM 4.7 MMOL/L (3.5-5.1); SODIUM 130 MMOL/L (135-145); TOTAL CARBON DIOXIDE 24.4 MMOL/L (24-32); eCRCL 49 ML/MIN; eGFR 46 ML/MIN
[2024-03-19 12:18] LABS: ALBUMIN/GLOBULIN RATIO 0.9 (1.1-1.5); TOTAL PROTEIN 7.3 G/DL (6.4-8.2)
[2024-03-19 12:19] LABS: GLUCOSE 688 MG/DL (70-104)
[2024-03-19] MEDS: normal saline 1000ml 1,000 ML IV ONE ×2 (13:08→15:58)
[2024-03-19] MEDS: insulin regular, human 10 units/0.1 ml syringe IV ONE ×2 (13:10→16:13)
[2024-03-19 13:14] LABS: URINE HCG NEGATIVE (NEG)
[2024-03-19 13:18] LABS: BILIRUBIN,URINE NEGATIVE (Neg); CLARITY,URINE CLEAR (Clear); COLOR,URINE STRAW (Yellow); GLUCOSE, URINE >=1000 mg/dl (Neg); KETONES,URINE 15 mg/dl (Neg); LEUKOCYTE ESTERASE ,URINE NEGATIVE (Neg); NITRITES, URINE NEGATIVE (Neg); OCCULT BLOOD,URINE NEGATIVE (Neg); PROTEIN,URINE NEGATIVE (Neg); UROBILINOGEN,URINE 0.2 E.U/dL (0.2-1.0)
[2024-03-19 13:27] LABS: UA COLLECTION TYPE CLN CATCH MIDSTREAM
[2024-03-19 13:36] LABS: BACTERIA,URINE 3+ /HPF (Neg); RBC,URINE NONE SEEN /HPF (0-2); SQUAMOUS EPITHELIAL CELL,UR FEW /LPF (FEW)
[2024-03-19 13:38] LABS: WBC CLUMPS,URINE FEW /HPF (NEGATIVE)
[2024-03-19] MEDS ORDERED: BLOO-122 METER (15:50)
[2024-03-19 17:36] VITALS: BP 160/90; PULSE 81; RESP 16; O2SAT 99
== END 2024-03-19 17:30 | disposition home or self-care (01) ==
LOC: ER 10:27
DX: E11.65 Type 2 diabetes mellitus with hyperglycemia (principal); E86.0 Dehydration; F12.90 Cannabis use, unspecified, uncomplicated; E78.00 Pure hypercholesterolemia, unspecified; I10 Essential (primary) hypertension; G89.29 Other chronic pain; M54.9 Dorsalgia, unspecified; Z79.899 Other long term (current) drug therapy; Z79.4 Long term (current) use of insulin; Z79.84 Long term (current) use of oral hypoglycemic drugs; Z79.2 Long term (current) use of antibiotics; Z98.890 Other specified postprocedural states; Z90.49 Acquired absence of other specified parts of digestive tract
CPT/HCPCS: 80053; 81001; 81025; 82948; 83690; 85025; 87077; 87088; 87186; 96361; 96374; 96376; 99284; J1815; J7030

== ENCOUNTER 2025-03-26 19:19 | Emergency (ER) | payer MEDICARE, MEDICAID ==
[~2025-03-26] VITALS: Ht 172.7 cm; Wt 72.7 kg
[~2025-03-26 19:19] MED LIST changes: -AMLO5TAB PO; +BLOO-1084; +BLOO-1718 TOP; -CELE-148 PO; +CHLO25TA10 PO; -CYCL-1 PO; +CYCL-394 PO; +DULA1.5P SQ; +GABA-530 PO; +LEVO100T9 PO; -LISI20TA28 PO; +MULT-25 PO; +NOR5T PO; -PANT-47 PO; +VALA100031 PO; -VALA500T41 PO
[2025-03-26 19:27] VITALS: TEMP 98
--- NOTE | 2025-03-26 22:23 | Physician Documentation ---
History of Present Illness ~ Chief Complaint: See Chief Complaint Stated Complaint: HAS BUGS AND PULLED WORM OUT OF SORE Time Seen by MD: 22:12 Primary Medical Doctor: KERI Perez Source: patient Mode of Arrival: POV Exam Limitations: no limitations HPI Presented with complaints of bug bites that has been going on for months. She complains of significant should not to her legs and whole-body. No scalp itching. Wounds. She brings in a picture of bugs that has consistent with bedbugs. Medication Reconciliation Allergies: Coded Allergies: No Known Allergies (Unverified , 03/26/25) Scheduled Amlodipine Besylate (Amlodipine Besylate), 10 MG PO DAILY Atorvastatin Calcium (Atorvastatin Calcium), 1 TAB PO DAILY, (Reported) Blood Sugar Diagnostic (Freestyle Lite Test Strips), 1 STRIP TID, (Reported) Chlorthalidone (Chlorthalidone), 0.5 TAB PO DAILY Cyclobenzaprine HCl (Cyclobenzaprine HCl), 1 TAB PO BID, (Reported) Gabapentin (Gabapentin), 1 CAP PO TID, (Reported) Insulin Glargine,Hum.rec.anlog (Basaglar Kwikpen U-100), 35 UNITS SQ DAILY, (Reported) Insulin Lispro (Insulin Lispro), 10 UNIT SQ TID, (Reported) Levothyroxine Sodium (Levothyroxine Sodium), 1 TAB PO DAILY, (Reported) Metformin HCl (Metformin HCl), 1 TABLET PO BID, (Reported) Multivitamin with Folic Acid (Thera Tablet), 1 EACH PO Q24H Permethrin (Permethrin), 1 APPLIC TOP ONCE Valacyclovir HCl (Valacyclovir), 1 TAB PO Q8H, (Reported) Scheduled PRN Diphenhydramine Hcl (Benadryl), 2 CAP PO Q6H PRN for itching Miscellaneous Medications Dulaglutide (Trulicity), SQ, (Reported) Durable Medical Equipment Blood-Glucose Sensor (Dexcom G6), TOP, (Reported), (DME) Past Medical History 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 Physical Exam Vital Signs: Temperature: 98.0, Source: Temporal, Heart Rate: 110, Respiratory Rate: 16, BP: 130/109, Pulse Oximetry: 97, Weight: 72.730 Oxygen Flow Rate: 0 Pulse Oximetry Reflects: adequate oxygenation Physical Exam Integumentary assessment: There is scattered scratches works with the lower extremities. No erythema consistent with cellulitis. Lungs are clear General Appearance: alert, WD/WN, no apparent distress Respiratory: lungs clear Chest: no accessory muscle use Skin: warm/dry, normal color Progress Results/Orders Results/Orders Completed Orders - MIKO COOK NP Diphenhydramine Capsule (Benadryl Capsul (03/26/25 22:30) Medications Received in ER Medications (Trade) Dose Ordered Sig/Francisco Javier Route PRN Reason Start Time Stop Time Status Last Admin Dose Admin (Benadryl capsule) 50 mg ONCE ONCE PO 03/26/25 22:30 03/26/25 22:31 DC 03/26/25 22:38 50 MG Vital Signs 03/26/25 03/26/25 19:27 22:39 Temp 98.0 Pulse 110 88 Resp 16 16 B/P (MAP) 130/109 133/89 Pulse Ox 97 98 O2 Flow Rate 0 Medical Decision Making Findings Patient presents secondary to bug infestation. She has a known she has had a bug infestation in her home for some months. Complains of significant itching to her body. Denies significant itching to her scalp. Does report seeing bugs in her pubic hair. A picture was reviewed of the bugs that are consistent with bedbugs. Treatments were reviewed with patient. She will be given Benadryl for her itching. Was also given permetherine cream. Encouraged to eradicate the Berkowitz's in her home. Currently, there is no symptoms consistent with cellulitis or any infectious process. She was encouraged to avoid scratching to prevent infection. Departure Time of Disposition: 22:20 Disposition: HOME / SELF CARE / HOMELESS Impression: Primary Impression: Bed bug bite Qualified Codes: W57.XXXA - Bitten or stung by nonvenomous insect and other nonvenomous arthropods, initial encounter Condition: Stable Discharge Instructions: Bedbugs, [id number] Referrals: NO PRIMARY CARE PROVIDER (PCP) Prescriptions Diphenhydramine Hcl (Benadryl) 25 Mg Capsule 2 CAP PO Q6H PRN for itching, #30 CAP 0 Refills Prov: MIKO COOK NP 03/26/25 Permethrin (Permethrin) 5 % Cream.gm. 1 APPLIC TOP ONCE for 1 Day, #60 GM 0 Refills massage into skin from head to soles of feet one time, leave on for 8-14 hours then remove by thorough washing Prov: MIKO COOK NP 03/26/25 Education Educated: Patient Educated regarding: diagnosis, treatment, prognosis, need for follow up Signature Scribe Signature: No scribe Attestation: The note accurately reflects work and decisions made by me.Miko Cook - FAZAL 03/26/25 23:29 This note was created with the assistance of voice recognition software whereby errors in grammar, syntax, and/or spelling may have occurred despite active proofreading efforts by the author. Please do not hesitate to contact the provider for clarification or for questions regarding the content of this document. MIKO COOK NP Mar 26, 2025 22:23
[2025-03-26] MEDS ORDERED: DIPH25CA83 PO (22:27)
[2025-03-26] MEDS ORDERED: PERM60CR4 TOP (22:27)
[2025-03-26 22:39] VITALS: BP 133/89; PULSE 88; RESP 16; O2SAT 98
== END 2025-03-26 22:40 | disposition home or self-care (01) ==
LOC: ER 19:20
DX: S80.861A Insect bite (nonvenomous), right lower leg, initial encounter (principal); S80.862A Insect bite (nonvenomous), left lower leg, initial encounter; E11.9 Type 2 diabetes mellitus without complications; I10 Essential (primary) hypertension; E78.00 Pure hypercholesterolemia, unspecified; F12.90 Cannabis use, unspecified, uncomplicated; F10.90 Alcohol use, unspecified, uncomplicated; Z90.49 Acquired absence of other specified parts of digestive tract; Y90.9 Presence of alcohol in blood, level not specified; W57.XXXA Bitten or stung by nonvenomous insect and other nonvenomous arthropods, initial encounter; Y93.89 Activity, other specified; Y92.89 Other specified places as the place of occurrence of the external cause; Y99.8 Other external cause status
CPT/HCPCS: 99282; Q0163